=== PATIENT | female | born 1935 | race Hispanic/Latino ===

== ENCOUNTER 2019-04-26 18:53 | Observation (INO) | payer MEDICARE ==
[~2019-04-26] VITALS: Ht 152.4 cm; Wt 65.4 kg
--- OUTSIDE RECORDS SUMMARY | 2019-04-26 18:56 | XMS REPORT ---
Author Author Clarisse Kong Organization eClinicalWorks Address Unknown Phone Unavailable Care Team Providers Care Oven Equipment Repairer Name Role Phone Clarisse Kong CP Unavailable Encounters Encounter Location Date DM Consult ((former pt of Dr. Kong)) Cecilio Bernal MD Aug 29, 2016 [facility] Cecilio Bernal MD Sep 20, 2016 Problems Problem Type Condition ICD-9 Code Onset Dates Condition Status Problem Diabetes mellitus type 2, uncontrolled, without complications E11.65 Active Problem Hyperlipidemia E78.5 Active Problem DM (diabetes mellitus), type 2, uncontrolled w/neurologic complication E11.41 Active Problem CKD (chronic kidney disease) stage 4, GFR 15-29 ml/min N18.4 Active Assessment Diabetes mellitus type 2, uncontrolled, without complications E11.65 Active Problem Essential (primary) hypertension I10 Active Problem Osteoporosis M81.0 Active Social History Social History Element Qualifiers Date Reported Language: . Irish, Czech Aug 29, 2016 Marital Status: single. Aug 29, 2016 Caffeine: yes. OCC Aug 29, 2016 Exercise: no. Aug 29, 2016 Smoking/Tobacco Use: no. Patient is a: Never Smoker Aug 29, 2016 Alcohol: no. Aug 29, 2016 Travel outside [place]: no. Aug 29, 2016 Occupation: unemployed. Aug 29, 2016 Summary Purpose eClinicalWorks Submission
--- OUTSIDE RECORDS SUMMARY | 2019-04-26 18:56 | XMS REPORT ---
Author Clarisse Partida [facility] [place] eClinicalWorks Address Unknown Phone Unavailable Care Team Providers Care Rubber Moulding Machine Operator Name Role Phone Clarisse Kong Unavailable Allergies, Adverse Reactions, Alerts Substance Reaction Event Type Iodine swelling Drug Allergy Encounters Encounter Location Date DM Consult ((former pt of Dr. Kong)) Cecilio Bernal MD Aug 29, 2016 Problems Problem Type Condition ICD-9 Code Onset Dates Condition Status Assessment Essential (primary) hypertension I10 Active Assessment DM (diabetes mellitus), type 2, uncontrolled w/neurologic complication E11.41 Active Assessment Hyperlipidemia E78.5 Active Problem Diabetes mellitus type 2, uncontrolled, without complications E11.65 Active Problem Hyperlipidemia E78.5 Active Problem DM (diabetes mellitus), type 2, uncontrolled w/neurologic complication E11.41 Active Problem CKD (chronic kidney disease) stage 4, GFR 15-29 ml/min N18.4 Active Assessment Diabetes mellitus type 2, uncontrolled, without complications E11.65 Active Problem Essential (primary) hypertension I10 Active Problem Osteoporosis M81.0 Active Assessment CKD (chronic kidney disease) stage 4, GFR 15-29 ml/min N18.4 Active Assessment Onychomycosis B35.1 Active Assessment Osteoporosis M81.0 Active Medications Medication Code System Code Instructions Start Date End Date Status Dosage Prolia MULTUM 461704 60 mg/mL subcutaneously every 6 months Aug 29, 2016 Active 60 mg gabapentin MULTUM 27007 300 mg orally 3 times a day Aug 29, 2016 Active 1 cap(s) lisinopril MULTUM 28115 20 mg orally once a day Active 1 tab(s) atorvastatin MULTUM 40469 40 mg orally once a day (at bedtime) Active 1 tab(s) Humalog Mix 75/25 MULTUM 09255 25 units-75 units/mL subcutaneously daily Inactive 25U AM, 20U PM Ciclopirox Olamine MULTUM 09505 8% applied topically apply daily to affected toenails Aug 29, 2016 Active 1 billy Humalog Mix 75/25 Pen MULTUM 29342 25 units-75 units/mL subcutaneously daily Sep 06, 2016 Active 25 units AM , 20units PM BD Ultra-Fine Pen Needle Zo [id number] MULTUM 5517267 - subcutaneously daily Sep 06, 2016 Active - amlodipine MULTUM 20954 5 mg orally once a day Active 1 tab(s) calcium and vitamin D combination MULTUM 29028 Active Unknown Social History Social History Element Qualifiers Date Reported Language: . [place] Islander, Central African Aug 29, 2016 Marital Status: single. Aug 29, 2016 Caffeine: yes. OCC Aug 29, 2016 Exercise: no. Aug 29, 2016 Smoking/Tobacco Use: no. Patient is a: Never Smoker Aug 29, 2016 Alcohol: no. Aug 29, 2016 Travel outside [place]: no. Aug 29, 2016 Occupation: unemployed. Aug 29, 2016 Vital Signs Date/Time: Aug 29, 2016 Weight 140 lbs Height 58 in Blood Pressure Diastolic 70 mm Hg Blood Pressure Systolic 116 mm Hg Results TSH, 3RD GENERATION TSH(-0.40-4.50 mIU/L) 2.76 T4, FREE T4, FREE(-0.8-1.8 ng/dL) 0.9 Finger stick glucose VITAMIN D, 25-HYDROXY, LC/MS/MS VITAMIN D, 25-OH, TOTAL(-30-100 ng/mL) 21 Summary Purpose eClinicalWorks Submission
--- OUTSIDE RECORDS SUMMARY | 2019-04-26 18:56 | XMS REPORT | Continuity of Care Document ---
Author Author [facility] Interface Address Unknown Phone Unavailable Problems Problem Status Onset Date Classification Date Reported Comments Source Hyperlipidemia Active Diagnosis 06/14/2017 Cecilio Bernal Diabetes mellitus type 2, uncontrolled, without complications Active Diagnosis 06/14/2017 Cecilio Bernal DM , type 2, uncontrolled w/neurologic complication Active Diagnosis 06/14/2017 Cecilio Bernal Vitamin D deficiency Active Problem 06/14/2017 Cecilio Bernal Osteoporosis Active Problem 06/14/2017 Cecilio Bernal CKD stage 4, GFR 15-29 ml/min Active Problem 06/14/2017 Cecilio Bernal Essential hypertension Active Problem 06/14/2017 Cecilio Bernal Onychomycosis Active Diagnosis 11/02/2016 Cecilio Bernal Medications Medication Details Route Status Patient Instructions Ordering Provider Order Date Source ergocalciferol 1 cap(s) orally Active 50,000 intl units orally once a week Luann 10/17/2016 Cecilio Bernal Humalog Mix 75/25 Pen 25 units AM , 20units PM subcutaneously Active 25 units-75 units/mL subcutaneously daily Luann 09/06/2016 Cecilio Bernal BD Ultra-Fine Pen Needle Zo [id number] - subcutaneously Active - subcutaneously daily Luann 09/06/2016 Cecilio Bernal Prolia 60 mg subcutaneously Active 60 mg/mL subcutaneously every 6 months Luann 08/29/2016 Cecilio Bernal gabapentin 1 cap(s) orally Active 300 mg orally 3 times a day Luann 08/29/2016 Cecilio Bernal Ciclopirox Olamine 1 billy applied topically Active 8% applied topically apply daily to affected toenails Luann 08/29/2016 Cecilio Bernal atorvastatin 1 tab(s) orally Active 40 mg orally once a day (at bedtime) Luann Bernal amlodipine 1 tab(s) orally Active 5 mg orally once a day Luann Bernal ergocalciferol 1 cap(s) orally Active 50,000 intl units orally once a week Luann Cecilio Bernal calcium and vitamin D combination not defined NA Active Luann Cecilio Bernal lisinopril 1 tab(s) orally Active 20 mg orally once a day Luann Galvezvaleta gabapentin 1 cap(s) orally Active 300 mg orally 2 times a day Luann Cecilio GalvezDolores Prolia 60 mg subcutaneously Active 60 mg/mL subcutaneously every 6 months Luann Bernal Humalog Mix 75/25 Pen 30 units with breakfast and 25 units with dinner subcutaneously Active 25 units-75 units/mL subcutaneously BID Luann Cecilio Bernal BD Ultra-Fine Pen Needle Zo [id number] - subcutaneously Active - subcutaneously daily Luann Cecilio GalvezDolores chlorthalidone not defined NA Active Luann Cecilio Bernal Humalog Mix 75/25 Pen 28 units AM , 20units PM subcutaneously Active 25 units-75 units/mL subcutaneously daily Luann Cecilio GalvezDolores lisinopril 1 tab(s) orally Active 20 mg orally once a day Luann Hernandes Dolores ergocalciferol 1 cap(s) orally Active 50,000 intl units orally once a week Luann Cecilio GalvezDolores gabapentin 1 cap(s) orally Active 300 mg orally 3 times a day Luann Hernandes Dolores BD Ultra-Fine Pen Needle Zo [id number] - subcutaneously Active - subcutaneously daily Luann Galvezvaleta Prolia 60 mg subcutaneously Active 60 mg/mL subcutaneously every 6 months Luann Cecilio Dolores atorvastatin 1 tab(s) orally Active 40 mg orally once a day (at bedtime) Luann Bernal calcium and vitamin D combination not defined NA Active Luann Cecilio Bernal Ciclopirox Olamine 1 billy applied topically Active 8% applied topically apply daily to affected toenails Luann Cecilio GalvezDolores amlodipine 1 tab(s) orally Active 5 mg orally once a day Luann Cecilio GalvezDolores Humalog Mix 75/25 25U AM, 20U PM subcutaneously No Longer Active 25 units-75 units/mL subcutaneously daily Luann Bernal Allergies, Adverse Reactions, Alerts Substance Category Reaction Severity Reaction type Status Date Reported Comments Source Iodine Adverse Reaction swelling Adverse Reaction Active 04/17/2017 Cecilio Bernal Immunizations Immunization Date Given Site Status Last Updated Comments Source Results Order Name Results Value Reference Range Date Interpretation Comments Source Vital Signs Vital Sign Value Date Comments Source Weight 143 04/17/2017 Cecilio Bernal Height 58 04/17/2017 Cecilio Bernal Diastolic (mm Hg) 70 04/17/2017 Cecilio Bernal Systolic (mm Hg) 125 04/17/2017 Cecilio Bernal Weight 145 01/14/2017 Cecilio Bernal Height 58 01/14/2017 Cecilio Bernal Diastolic (mm Hg) 80 01/14/2017 Cecilio Bernal Systolic (mm Hg) 122 01/14/2017 Cecilio Bernal Weight 139 10/17/2016 Cecilio Bernal Height 58 10/17/2016 Cecilio Bernal Diastolic (mm Hg) 70 10/17/2016 Cecilio Bernal Systolic (mm Hg) 110 10/17/2016 Cecilio Bernal Weight 140 08/29/2016 Cecilio Bernal Height 58 08/29/2016 Cecilio Bernal Diastolic (mm Hg) 70 08/29/2016 Cecilio Bernal Systolic (mm Hg) 116 08/29/2016 Cecilio GalvezDolores Encounters Location Location Details Encounter Type Encounter Number Reason For Visit Attending Provider ADM Date DC Date Status Source Cecilio Bernal MD DM Consult ((former pt of Dr. Kong)) [id number] 08/29/2016 08/29/2016 Cecilio Gonzalez MD DM Consult ((former pt of Dr. Kong)) [id number] 08/29/2016 08/29/2016 Cecilio Gonzalez MD DM Consult ((former pt of Dr. Kong)) [id number] 08/29/2016 08/29/2016 Cecilio Gonzalez MD DM Consult ((former pt of Dr. Kong)) [id number] 08/29/2016 08/29/2016 Cecilio Gonzalez MD [facility] [id number] 09/20/2016 09/20/2016 Cecilio Gonzalez MD [facility] [id number] 09/20/2016 09/20/2016 Cecilio Gonzalez MD [facility] [id number] 09/20/2016 09/20/2016 Cecilio Gonzalez MD 6 Weeks (Reason: CGM/DM ) [id number] 10/17/2016 10/17/2016 Cecilio Gonzalez MD 6 Weeks (Reason: CGM/DM ) [id number] 10/17/2016 10/17/2016 Cecilio Gonzalez MD lab order [id number] 01/07/2017 01/07/2017 Cecilio Bernal Procedures Procedure Code Date Perfomer Comments Source
--- OUTSIDE RECORDS SUMMARY | 2019-04-26 18:56 | XMS REPORT ---
Author Clarisse Partida [facility] eClinicalWorks Address Unknown Phone Unavailable Care Team Providers Care Power Shovel Operator Name Role Phone Clarisse Kong Unavailable Encounters Encounter Location Date lab order Cecilio Bernal MD January 07, 2017 DM Consult ((former pt of Dr. Kong)) Cecilio Bernal MD Aug 29, 2016 [facility] Cecilio Bernal MD Sep 20, 2016 6 Weeks (Reason: CGM/DM ) Cecilio Bernal MD Oct 17, 2016 Problems Problem Type Condition ICD-9 Code Onset Dates Condition Status Assessment CKD (chronic kidney disease) stage 4, GFR 15-29 ml/min N18.4 Active Assessment Diabetes mellitus type 2, uncontrolled, without complications E11.65 Active Assessment Essential (primary) hypertension I10 Active Problem DM (diabetes mellitus), type 2, uncontrolled w/neurologic complication E11.41 Active Problem Diabetes mellitus type 2, uncontrolled, without complications E11.65 Active Problem Vitamin D deficiency E55.9 Active Problem Osteoporosis M81.0 Active Problem CKD (chronic kidney disease) stage 4, GFR 15-29 ml/min N18.4 Active Problem Hyperlipidemia E78.5 Active Problem Essential (primary) hypertension I10 Active Assessment Vitamin D deficiency E55.9 Active Assessment Osteoporosis M81.0 Active Assessment Hyperlipidemia E78.5 Active Social History Social History Element Qualifiers Date Reported Language: . Panamanian, Azeri Oct 17, 2016 Marital Status: single. Oct 17, 2016 Caffeine: yes. OCC Oct 17, 2016 Exercise: no. Oct 17, 2016 Smoking/Tobacco Use: no. Patient is a: Never Smoker Oct 17, 2016 Alcohol: no. Oct 17, 2016 Travel outside [place]: no. Oct 17, 2016 Occupation: unemployed. Oct 17, 2016 Summary Purpose eClinicalWorks Submission
--- OUTSIDE RECORDS SUMMARY | 2019-04-26 18:56 | XMS REPORT ---
Author Clarisse Partida [facility] eClinicalWorks Address Unknown Phone Unavailable Care Team Providers Care Airflight Attendants Supervisor Name Role Phone Clarisse Kong CP Unavailable Allergies, Adverse Reactions, Alerts Substance Reaction Event Type Iodine swelling Drug Allergy Problems Problem Type Condition Code Onset Dates Condition Status Assessment Hyperlipidemia E78.5 Active Assessment Diabetes mellitus type 2, uncontrolled, without complications E11.65 Active Assessment DM (diabetes mellitus), type 2, uncontrolled w/neurologic complication E11.41 Active Problem DM (diabetes mellitus), type 2, uncontrolled w/neurologic complication E11.41 Active Problem Diabetes mellitus type 2, uncontrolled, without complications E11.65 Active Problem Vitamin D deficiency E55.9 Active Problem Osteoporosis M81.0 Active Problem CKD (chronic kidney disease) stage 4, GFR 15-29 ml/min N18.4 Active Problem Hyperlipidemia E78.5 Active Problem Essential (primary) hypertension I10 Active Assessment Vitamin D deficiency E55.9 Active Assessment CKD (chronic kidney disease) stage 4, GFR 15-29 ml/min N18.4 Active Assessment Osteoporosis M81.0 Active Assessment Essential (primary) hypertension I10 Active Medications Medication Code System Code Instructions Start Date End Date Status Dosage atorvastatin [facility] 30398686965 40 mg orally once a day (at bedtime) Active 1 tab(s) amlodipine [facility] 08334543694 5 mg orally once a day Active 1 tab(s) ergocalciferol [facility] 89317342249 50,000 intl units orally once a week Active 1 cap(s) calcium and vitamin D combination ND 0 Active not defined lisinopril [facility] 34432343608 20 mg orally once a day Active 1 tab(s) gabapentin ND 80895119681 300 mg orally 2 times a day Active 1 cap(s) Prolia [facility] 83469941737 60 mg/mL subcutaneously every 6 months Active 60 mg Humalog Mix 75/25 Pen [facility] 64689206038 25 units-75 units/mL subcutaneously BID Active 30 units with breakfast and 25 units with dinner BD Ultra-Fine Pen Needle Zo [id number] NDC 0 - subcutaneously daily Active - chlorthalidone NDC 0 Active not defined Vital Signs Date/Time: April 17, 2017 BMI 29.88 Index Weight 143 lbs Height 58 in Blood Pressure Diastolic 70 mm Hg Blood Pressure Systolic 125 mm Hg Results No Known Results Summary Purpose eClinicalWorks Submission
--- OUTSIDE RECORDS SUMMARY | 2019-04-26 18:56 | XMS REPORT ---
Author Clarisse Partida [facility] eClinicalWorks Address Unknown Phone Unavailable Care Team Providers Care Over Hauler Helper Name Role Phone Clarisse Kong Unavailable Allergies, [...] ICD-9 Code Onset Dates Condition Status Assessment Hyperlipidemia [...] Problem Essential (primary) hypertension I10 Active Assessment CKD (chronic kidney disease) stage 4, GFR 15-29 ml/min N18.4 Active Assessment Onychomycosis B35.1 Active Assessment Osteoporosis M81.0 Active Assessment Vitamin D deficiency E55.9 Active Assessment Essential (primary) hypertension I10 Active Medications Medication Code System Code Instructions Start Date End Date Status Dosage atorvastatin MULTUM 37291 40 mg orally once a day (at bedtime) Active 1 tab(s) Prolia MULTUM 892923 60 mg/mL subcutaneously every 6 months Active 60 mg gabapentin MULTUM 11378 300 mg orally 3 times a day Active 1 cap(s) lisinopril MULTUM 15722 20 mg orally once a day Active 1 tab(s) Ciclopirox Olamine MULTUM 63795 8% applied topically apply daily to affected toenails Active 1 billy ergocalciferol MULTUM 26205 50,000 intl units orally once a week Oct 17, 2016 Active 1 cap(s) BD Ultra-Fine Pen Needle Zo [id number] MULTUM 3744975 - subcutaneously daily Active - Humalog Mix 75/25 Pen MULTUM 56366 25 units-75 units/mL subcutaneously daily Active 28 units AM , 20units PM amlodipine MULTUM 30784 5 mg orally once a day Active 1 tab(s) calcium and vitamin D combination MULTUM 87076 Active Unknown Social History Social History Element Qualifiers Date Reported Language: . Azeri, Cuban Oct 17, 2016 Marital Status: single. Oct 17, 2016 Caffeine: yes. OCC Oct 17, 2016 Exercise: no. Oct 17, 2016 Smoking/Tobacco Use: no. Patient is a: Never Smoker Oct 17, 2016 Alcohol: no. Oct 17, 2016 Travel outside [place]: no. Oct 17, 2016 Occupation: unemployed. Oct 17, 2016 Vital Signs Date/Time: Oct 17, 2016 Weight 139 lbs Height 58 in Blood Pressure Diastolic 70 mm Hg Blood Pressure Systolic 110 mm Hg Results Finger stick glucose Summary Purpose eClinicalWorks Submission
--- OUTSIDE RECORDS SUMMARY | 2019-04-26 18:56 | XMS REPORT ---
Author Clarisse Partida [facility] eClinicalWorks Address Unknown Phone Unavailable Care Team Providers Care Nuclear Reactor Operator Name Role Phone Clarisse Kong CP Unavailable Allergies No Known Allergies Problems Problem Type Condition Code Onset Dates Condition Status Assessment Diabetes mellitus type 2, uncontrolled, without complications E11.65 Active Problem DM (diabetes mellitus), type 2, uncontrolled w/neurologic complication E11.41 Active Problem Diabetes mellitus type 2, uncontrolled, without complications E11.65 Active Problem Vitamin D deficiency E55.9 Active Problem Osteoporosis M81.0 Active Problem CKD (chronic kidney disease) stage 4, GFR 15-29 ml/min N18.4 Active Problem Hyperlipidemia E78.5 Active Problem Essential (primary) hypertension I10 Active Medications Medication Code System Code Instructions Start Date End Date Status Dosage Humalog Mix 75/25 Pen [facility] [address]62 25 units-75 units/mL subcutaneously daily Active 28 units AM , 20units PM Results No Known Results Summary Purpose eClinicalWorks Submission
--- OUTSIDE RECORDS SUMMARY | 2019-04-26 18:56 | XMS REPORT ---
Author Clarisse Partida [facility] eClinicalWorks Address Unknown Phone Unavailable Care Team Providers Care Bobbin Painter Name Role Phone Clarisse Kong Unavailable Allergies, [...] Instructions Start Date End [place] [address] 20 mg orally once a day Active 1 tab([place] [address] 50,000 intl units orally once a week Active 1 cap(s) gabapentin NDC 75753 300 mg orally 3 times a day Active 1 cap(s) BD Ultra-Fine Pen Needle Zo [id number] ND 0127236 - subcutaneously daily Active - Prolia NDC 941623 60 mg/mL subcutaneously every 6 months Active 60 [place] [address] 40 mg orally once a day (at bedtime) Active 1 tab([place]) [place] [address] Active not [place] [address] 8% applied topically apply daily to affected toenails Active 1 billy Humalog Mix 75/[place] [address] 25 units-75 units/mL subcutaneously daily Active 28 units AM , 20units PM amlodipine [facility] 48143 5 mg orally once a day Active 1 tab(s) Vital Signs Date/Time: January 14, 2017 BMI 30.30 Index Weight 145 lbs Height 58 in Blood Pressure Diastolic 80 mm Hg Blood Pressure Systolic 122 mm Hg Results No Known Results Summary Purpose eClinicalWorks Submission
[2019-04-26] MEDS ORDERED: SODIUM CHLORIDE 0.9% 500ML 500 ML IV STA (19:09)
[2019-04-26] MEDS ORDERED: ONDANSETRON HCL INJ 2MG/ML 2ML 2 MG/ML VIAL IV ONE (19:15)
[2019-04-26] MEDS ORDERED: FAMOTIDINE 20 MG/2 ML VIAL IV ONE ×2 (19:15→19:35)
[2019-04-26] MEDS ORDERED: SODIUM CHLORIDE 0.9% 500ML 500 ML ONE (19:35)
[2019-04-26] MEDS ORDERED: ONDANSETRON HCL INJ 2MG/ML 2ML 2 MG/ML VIAL ONE (19:35)
[2019-04-26] MEDS ORDERED: DIPHENHYDRAMINE HCL INJ 50 MG/ML VIAL IV PRN ×2 (19:45→20:45)
[2019-04-26] MEDS ORDERED: PROMETHAZINE 12.5MG/ NACL 0.9% 12.5 MG/50 ML BAG IV PRN (19:45)
[2019-04-26] MEDS ORDERED: ENALAPRILAT IV INJ 1.25 MG/ML VIAL IV PRN ×2 (19:45→20:45)
[2019-04-26] MEDS ORDERED: ONDANSETRON HCL INJ 2MG/ML 2ML 2 MG/ML VIAL IV PRN ×2 (19:45→20:45)
[2019-04-26] MEDS ORDERED: HYDRALAZINE HCL 20 MG/ML VIAL IV PRN (19:45)
[2019-04-26] MEDS ORDERED: MORPHINE SULFATE INJ 4 MG/ML INJ 1ML IV PRN ×2 (19:45→20:45)
[2019-04-26] MEDS ORDERED: MORPHINE SULFATE INJ 4 MG/ML INJ 1ML ONE (19:51)
[2019-04-26] MEDS ORDERED: LACTATED RINGER'S 1,000 ML IV SCH (20:35)
--- NOTE | 2019-04-26 20:35 | Diagnostic Imaging Report ---
EXAMINATION: CT of the abdomen and pelvis without contrast. TECHNIQUE: Spiral CT images of the abdomen and pelvis were performed from the lung bases to the lesser trochanters. No intravenous contrast was given per physician's request. Coronal and sagittal reformatted images were obtained. COMPARISON: None. CLINICAL HISTORY:Constipation, lower abdominal pain for 3 days DISCUSSION: ABSENCE OF INTRAVENOUS CONTRAST DECREASES SENSITIVITY FOR DETECTION OF FOCAL LESIONS AND VASCULAR PATHOLOGY. ABDOMEN/PELVIS: LOWER THORAX: Atherosclerotic calcification of the coronary arteries and thoracic aorta. Calcified bilateral hilar nodes. Linear subsegmental atelectasis versus scarring in the lateral right lower lobe. 3 mm pulmonary nodule in the lateral right lower lobe (series 2, image 11). HEPATOBILIARY: No focal hepatic lesions. No intrahepatic biliary ductal dilation. Common bile duct is mildly dilated, measuring 8.5 mm at the antonio hepatis. GALLBLADDER: There are cholecystectomy clips. SPLEEN: No splenomegaly. PANCREAS: No focal masses or ductal dilatation. Fatty replacement of the pancreas. ADRENALS: No adrenal nodules. KIDNEYS/URETERS: Punctate nonobstructing calculus in the left superior to mid aspect (series 2, image 30 and coronal image 67). No other renal or ureteral calculi, hydronephrosis or obstruction. Mild nonspecific bilateral perinephric stranding. Mild bilateral renal cortical scarring. PELVIC ORGANS/BLADDER: Bladder is moderately distended but grossly unremarkable. Uterus is absent. Multiple pelvic phleboliths. PERITONEUM/RETROPERITONEUM: No free air or fluid. LYMPH NODES: No intra-abdominal,retroperitoneal, pelvic or inguinal lymphadenopathy. VESSELS: Atherosclerotic calcification of the abdominal aorta and iliac vessels. GI TRACT: Mild dilation of the rectum which measures 6.7 cm in transverse diameter, and is filled with hardened stool (series 2, images 79 and sagittal image 61). No surrounding inflammatory changes. No bowel dilation or evidence of obstruction. Mild retained stool in the distal descending colon and sigmoid. BONES AND SOFT TISSUES: No aggressive lytic lesions. Generalized osteopenia. Age indeterminate compression fractures of the L3 and T12 vertebral bodies. Focal subcutaneous soft tissue stranding in the right anterior abdominal pelvic wall (series 2, image 68), which may represent subcutaneous injection site IMPRESSION: 1. Mild dilation of the rectum, which is filled with hardened stool. This may reflect impaction. Rest of the bowel shows no dilation or obstruction. 2. Punctate nonobstructing calculus in the left kidney. No ureteral calculi, hydronephrosis or obstruction. 3. Mild dilation of the common bile duct, likely reflecting post cholecystectomy status. 4. Age-indeterminate compression fractures of the L3 and T12 vertebral bodies Signed by: Dr. Kaiden Beltran M.D. on 04/26/2019 8:32 PM
[2019-04-26] MEDS ORDERED: SOD PHOSPHATE/SOD BIPHOSPHATE ENEMA 132 ML BTL PR ONE (20:45)
[2019-04-26] MEDS ORDERED: PEG (High)/E-LYTE SOLN 4,000 ML BTL PO ONE (20:45)
[2019-04-26] MEDS ORDERED: DEXTROSE 50% SYRINGE 50 ML IV PRN (20:45)
[2019-04-26] MEDS ORDERED: INSULIN REGULAR, HUMAN 100 UNIT/1 ML 3ML VIAL SQ SCH (21:00)
--- NOTE | 2019-04-26 21:00 | NUR ---
REPORT CALLED TO [facility] SNYDER, NOTIFIED THAT WE ARE UNABLE TO GIVE FLEETS ENEMA AND OTHER MEDICATION FOR HELP WITH EVACUATION OF FECAL IMPACTATION WE DO NOT HAVE MEDS AVAILABLE HERE AT [facility]. NOTIFIED DR. ARAUZ WELL OF MEDS NOT BEING GIVEN.
--- NOTE | 2019-04-26 22:22 | NUR ---
AWAITING AMBULANCE TRANSPORT FROM [facility], [facility] CALLED 2106 FOR TANSPORT AND TOLD LESS THAN 45 MINUTES, CALLED BACK AT 2153 AND TOLD POSSIBLY ADDITIONAL 30-45 MINUTES NEEDED [facility] DISPATCH WAS EMERGENTLY SENT ELSE WHERE, TIME CURRENTLY 2222 AND NOW AWAITING A SECOND UNIT THAT WAS DISPATCHED? WAS TOLD AT 2215 THAT THERE WAS A UNIT LESS THAN 10 MINUTES AWAY BUT STILL AWAITING ARRIVAL OF EMS AT 2225??!!!
[2019-04-26] MEDS ORDERED: ATORVASTATIN CA20 MG PO (22:35)
[2019-04-26] MEDS ORDERED: AMLODIPINE BESYL5 MG PO (22:35)
[2019-04-26] MEDS ORDERED: FUROSEMIDE40 MG PO (22:35)
--- NOTE | 2019-04-26 22:55 | NUR ---
received pt from [facility] to room 179, AAOx4, legally blind and hard of hearing, c/o abdominal pain 04/12, pain meds on board, skin intact, able to verbalize needs, resp even and unlabored, daughter at bedside, bed in lowest and locked position, call light in reach
[2019-04-26 23:10] VITALS: BP 151/67
[2019-04-27 00:10] VITALS: BP 151/67
--- NOTE | 2019-04-27 01:30 | NUR ---
administered fleets enema, pt tolerated
--- NOTE | 2019-04-27 01:49 | NUR ---
pt had large bowel movement of hard stool then liquid, stated " i feel better already"
[2019-04-27 05:01] LABS: BASOPHILS % 0.3 % (0.0-1.0); EOSINOPHILS # (AUTO) 0.2 (0.0-0.4); EOSINOPHILS % 1.8 % (0.0-6.0); HEMATOCRIT 28.4 % (34.2-44.1); HEMOGLOBIN 8.7 g/dL (12.0-16.0); LYMPHOCYTES # (AUTO) 2.9 (1.0-3.2); LYMPHOCYTES % 26.9 % (18.0-39.1); MEAN CORPUSCULAR HEMOGLOBIN 27.4 pg (28-32); MEAN CORPUSCULAR HGB CONC 30.6 g/dL (31-35); MEAN CORPUSCULAR VOLUME 89.6 fL (81-99); MONOCYTES # (AUTO) 0.8 (0.2-0.8); MONOCYTES % 7.7 % (4.4-11.3); NEUTROPHILS # (AUTO) 6.8 (2.1-6.9); PLATELET COUNT 153 x10e3/uL (140-360); RED BLOOD COUNT 3.17 x10e6/uL (3.6-5.1)
[2019-04-27 05:03] VITALS: BP 124/57
[2019-04-27 05:21] LABS: ANION GAP 13.9 mmol/L (8-16); CALCIUM 8.3 mg/dL (8.4-10.2); CREATININE, SERUM 2.54 mg/dL (0.57-1.11); POTASSIUM 3.9 mmol/L (3.5-5.1)
--- NOTE | 2019-04-27 06:42 | NUR ---
H&P cc: abdominal pain- severe HPI: 83yoF, PCP , developed severe abdominal pain, found to have fecal impaction. PMH: HTN, DM2, HLD< osteoporosis, CKD due to DM2, anemia, lumbar compression fx PSHx: cholecystectomy, partial hysterectomy Allergies; see emr fh/SH; ; no cigs/etoh Meds; see MAR ROS: no f/c/s/N/V/D/AREVALO/cp/dizziness/back pain/skin rash v's revd PE tired appering anicteric ns1s2 mod bs soft ND; minimally tender no e/t skin dry a&ox3 labs/mes revd A/P: CKD4 due to DM2 Fecal impaction Lumbar compression fx Moderate anemia HTN HLD PLAN; bowel reg PT consult fx chronic? SCD
[2019-04-27] MEDS ORDERED: SODIUM CHLORIDE 0.9% 1000ML 1,000 ML IV SCH (07:00)
[2019-04-27] MEDS ORDERED: COLACE100 MG PO (07:34)
[2019-04-27] MEDS ORDERED: SENNA LAX8.6 MG PO (07:34)
[2019-04-27] MEDS ORDERED: LACTULOSE20 GM/30 M PO (07:34)
[2019-04-27 07:51] VITALS: BP 111/54
[2019-04-27] MEDS ORDERED: FUROSEMIDE 40 MG TAB PO SCH (09:00)
[2019-04-27] MEDS ORDERED: AMLODIPINE BESYLATE 5 MG TAB PO SCH (09:00)
[2019-04-27] MEDS ORDERED: DOCUSATE SODIUM 100 MG CAP PO SCH (09:00)
[2019-04-27] MEDS ORDERED: ATORVASTATIN 20 MG TAB PO SCH (21:00)
--- NOTE | 2019-04-29 06:02 | NUR ---
D/C summary: Principal dx; Fecal impaction Secondary Dx: CKD4 due to DM2 Lumbar compression fx Moderate anemia HTN HLD PLAN; bowel reg PT consult fx chronic? SCD had multiple BMs; d/c home f/u pcp 1 week stable d/c>35mins Onel Sterling MD, PhD.
== END 2019-04-27 08:05 | disposition home or self-care (01) ==
LOC: FSED 18:53 → ERHOLD 20:35 → IMCU 22:55
PROVIDERS: ADMIT Internal Medicine; ATTEND Internal Medicine
DX: K56.41 Fecal impaction (principal); E11.22 Type 2 diabetes mellitus with diabetic chronic kidney disease; I12.9 Hypertensive chronic kidney disease with stage 1 through stage 4 chronic kidney disease, or unspecified chronic kidney disease; N18.4 Chronic kidney disease, stage 4 (severe); Z79.4 Long term (current) use of insulin; M48.56XD Collapsed vertebra, not elsewhere classified, lumbar region, subsequent encounter for fracture with routine healing; M81.0 Age-related osteoporosis without current pathological fracture; Z90.710 Acquired absence of both cervix and uterus
CPT/HCPCS: 36415; 74176; 80048; 80053; 81003; 82948; 85025 ×2; 99284; G0378 ×2; J0360; J1200; J1817; J2270; J2405 ×2; J2550; J7030; J7040; J7121

== ENCOUNTER 2020-01-31 14:27 | Emergency (ER) | payer MEDICARE ==
[~2020-01-31] VITALS: Ht 152.4 cm; Wt 65.3 kg
[~2020-01-31 14:27] MED LIST: AMLODIPINE BESYL5 MG PO; ATORVASTATIN CA20 MG PO; COLACE100 MG PO; FUROSEMIDE40 MG PO; LACTULOSE20 GM/30 M PO; SENNA LAX8.6 MG PO
--- OUTSIDE RECORDS SUMMARY | 2020-01-31 14:30 | XMS REPORT ---
Author Author [facility] Address Unknown Phone Unavailable Care Team Providers Care Technical Sales Support Specialist Name Role Phone MORRIS MINE, Jud ESTEBAN PP Unavailable Pardeep ARAUZ Unavailable Unavailable EMCINDY Unavailable Unavailable Payers Payer Name Policy Type Policy Number Effective Date Expiration Date Problems This patient has no known problems. Allergies, Adverse Reactions, Alerts Allergy Name Allergy Type Status Severity Reaction(s) Onset Date Inactive Date Treating Clinician Comments iodine DA Active SV 2019-07-29 00:00:00 Medications This patient has no known medications. Encounters Start Date/Time End Date/Time Encounter Type Admission Type Attending Clinicians Care Facility Care Department Encounter ID 2019-07-28 18:21:00 2019-07-28 18:21:00 Emergency E [id number] 2017-09-29 21:35:00 2017-09-29 21:35:00 Emergency E [facility] [id number] 2017-09-24 10:35:00 2017-09-24 10:35:00 Outpatient C [facility] [id number] 2013-12-15 12:57:00 2013-12-15 12:57:00 Emergency E [facility] [id number] 2012-03-11 01:26:00 2012-03-11 01:26:00 Outpatient E [facility] [id number] Results Test Description Test Time Test Comments Text Results Atomic Results Result Comments US Breast Complete Left 2019-10-15 09:54:48 Patient: LALA MURRIETA Date/Time10/15/2019 09:32 CSTReason for ExamR92.8ReportDictation location C24Nmat breast ultrasound.HISTORY: 6 month follow-up of complicated left breast cystCOMMENT: Real-time sonographic images of the left breast were performed. Heterogeneous fibroglandular tissue is present. There are stable cysts at the 4:00 position 2 cm from the nipple measuring 9 mm and a smaller complicated cyst at the 9:00 retroareolar region measuring 4 mm. No new lesions or enlarged lymph nodes noted.IMPRESSION:1. Benign cysts in the left breast.2. BI-RADS CATEGORY: 2- BENIGN FINDINGSRECOMMENDATION: Resume yearly screening mammogram Final Dictated by: MD Ford Phebe CDictated DT/TM: 10/15/2019 9:38 amSigned by: MD Ford Phebe CSigned (Electronic Signature): 10/15/2019 9:54 am GLUBED 2019-08-04 17:18:00 GLUBED (test code=GLUBED) 198 MG/DL 70-110 Performed by certified contact acid plant operator helper at [facility] [id number] 12:53:00* Test Item Value Reference Range Comments GLUBED (test code=GLUBED) 230 MG/DL 70-110 Performed by certified contact acid plant operator helper at [facility] [id number] 08:40:00* Test Item Value Reference Range Comments GLUBED (test code=GLUBED) 230 MG/DL 70-110 Performed by certified contact acid plant operator helper at [facility] BASIC METABOLIC [id number] 08:08:00* Test Item Value Reference Range Comments SODIUM (test code=NA) 143 mEq/L 134-147 POTASSIUM (test code=K) 4.7 mEq/L 3.4-5.0 CHLORIDE (test code=CL) 111 mEq/L 100-108 CARBON DIOXIDE (test code=CO2) 28 mEq/L 21-33 ANION GAP (test code=GAP) 9 0-20 GLUCOSE (test code=GLU) 256 mg/dL 70-110 BLOOD UREA NITROGEN (test code=BUN) 41 mg/dL 7-18 GLOMERULAR FILTRATION RATE (test code=GFR) 23.7 70-80 Units of measure=ml/min/1.73 m2 CREATININE (test code=CREAT) 2.0 mg/dL 0.6-1.3 CALCIUM (test code=CA) 8.2 mg/dL 8.0-10.5 [id number] 08:08:00* Test Item Value Reference Range Comments PHOSPHOROUS (test code=PHOS) 2.5 MG/DL 2.5-4.9 [id number] 08:08:00* Test Item Value Reference Range Comments MAGNESIUM (test code=MAG) 2.30 mg/dL 1.8-2.4 CBC W/AUTO [id number] 07:17:00* Test Item Value Reference Range Comments WHITE BLOOD CELL (test code=WBC) 9.76 x10 3/uL 4.5-11.0 RED BLOOD CELL (test code=RBC) 2.89 x10 6/uL 3.54-5.02 HEMOGLOBIN (test code=HGB) 8.0 g/dL 11.0-15.0 HEMATOCRIT (test code=HCT) 26.2 % 33.0-45.0 MEAN CELL VOLUME (test code=MCV) 90.7 fL 81.0-99.0 MEAN CELL HGB (test code=MCH) 27.7 pg 27.0-33.0 MEAN CELL HGB CONCETRATION (test code=MCHC) 30.5 g/dL 33.0-37.0 RED CELL DISTRIBUTION WIDTH CV (test code=RDW) 13.6 % 11.5-14.5 RED CELL DISTRIBUTION WIDTH SD (test code=RDW-SD) 45.3 fL 37.0-54.0 PLATELET COUNT (test code=PLT) 140 x10 3/uL 150-400 MEAN PLATELET VOLUME (test code=MPV) 11.6 fL 7.0-9.0 NEUTROPHIL % (test code=NT%) 66.7 % 56.0-77.0 IMMATURE GRANULOCYTE % (test code=IG%) 0.7 % 0.0-2.0 LYMPHOCYTE % (test code=LY%) 21.9 % 14.0-32.0 MONOCYTE % (test code=MO%) 7.2 % 4.8-9.0 EOSINOPHIL % (test code=EO%) 3.3 % 0.3-3.7 BASOPHIL % (test code=BA%) 0.2 % 0.0-2.0 NUCLEATED RBC % (test code=NRBC%) 0.0 % 0-0 NEUTROPHIL # (test code=NT#) 6.51 x10 3/uL 2.0-7.6 IMMATURE GRANULOCYTE # (test code=IG#) 0.07 x10 3/uL 0.00-0.03 LYMPHOCYTE # (test code=LY#) 2.14 x10 3/uL 1.0-3.8 MONOCYTE # (test code=MO#) 0.70 x10 3/uL 0.1-0.8 EOSINOPHIL # (test code=EO#) 0.32 x10 3/uL 0.0-0.2 BASOPHIL # (test code=BA#) 0.02 x10 3/uL 0.0-0.2 NUCLEATED RBC # (test code=NRBC#) 0.00 x10 3/uL 0.0-0.1 MANUAL DIFF REQUIRED (test code=MDIFF) NO [id number] 20:45:00* Test Item Value Reference Range Comments GLUBED (test code=GLUBED) 234 MG/DL 70-110 Performed by certified contact acid plant operator helper at [facility] [id number] 17:08:00* Test Item Value Reference Range Comments GLUBED (test code=GLUBED) 284 MG/DL 70-110 Performed by certified contact acid plant operator helper at [facility] [id number] 12:50:00* Test Item Value Reference Range Comments GLUBED (test code=GLUBED) 282 MG/DL 70-110 Performed by certified contact acid plant operator helper at [facility] CBC W/AUTO [id number] 09:22:00* Test Item Value Reference Range Comments WHITE BLOOD CELL (test code=WBC) 11.31 x10 3/uL 4.5-11.0 RED BLOOD CELL (test code=RBC) 2.99 x10 6/uL 3.54-5.02 HEMOGLOBIN (test code=HGB) 8.7 g/dL 11.0-15.0 HEMATOCRIT (test code=HCT) 27.4 % 33.0-45.0 MEAN CELL VOLUME (test code=MCV) 91.6 fL 81.0-99.0 MEAN CELL HGB (test code=MCH) 29.1 pg 27.0-33.0 MEAN CELL HGB CONCETRATION (test code=MCHC) 31.8 g/dL 33.0-37.0 RED CELL DISTRIBUTION WIDTH CV (test code=RDW) 13.8 % 11.5-14.5 RED CELL DISTRIBUTION WIDTH SD (test code=RDW-SD) 45.8 fL 37.0-54.0 PLATELET COUNT (test code=PLT) 134 x10 3/uL 150-400 MEAN PLATELET VOLUME (test code=MPV) 11.7 fL 7.0-9.0 NEUTROPHIL % (test code=NT%) 64.0 % 56.0-77.0 IMMATURE GRANULOCYTE % (test code=IG%) 0.6 % 0.0-2.0 LYMPHOCYTE % (test code=LY%) 25.6 % 14.0-32.0 MONOCYTE % (test code=MO%) 6.7 % 4.8-9.0 EOSINOPHIL % (test code=EO%) 2.7 % 0.3-3.7 BASOPHIL % (test code=BA%) 0.4 % 0.0-2.0 NUCLEATED RBC % (test code=NRBC%) 0.0 % 0-0 NEUTROPHIL # (test code=NT#) 7.24 x10 3/uL 2.0-7.6 IMMATURE GRANULOCYTE # (test code=IG#) 0.07 x10 3/uL 0.00-0.03 LYMPHOCYTE # (test code=LY#) 2.89 x10 3/uL 1.0-3.8 MONOCYTE # (test code=MO#) 0.76 x10 3/uL 0.1-0.8 EOSINOPHIL # (test code=EO#) 0.31 x10 3/uL 0.0-0.2 BASOPHIL # (test code=BA#) 0.04 x10 3/uL 0.0-0.2 NUCLEATED RBC # (test code=NRBC#) 0.00 x10 3/uL 0.0-0.1 MANUAL DIFF REQUIRED (test code=MDIFF) NO [id number] 08:53:00* Test Item Value Reference Range Comments GLUBED (test code=GLUBED) 199 MG/DL 70-110 Performed by certified contact acid plant operator helper at [facility] BASIC METABOLIC [id number] 07:53:00* Test Item Value Reference Range Comments SODIUM (test code=NA) 142 mEq/L 134-147 POTASSIUM (test code=K) 4.5 mEq/L 3.4-5.0 CHLORIDE (test code=CL) 110 mEq/L 100-108 CARBON DIOXIDE (test code=CO2) 27 mEq/L 21-33 ANION GAP (test code=GAP) 10 0-20 GLUCOSE (test code=GLU) 211 mg/dL 70-110 BLOOD UREA NITROGEN (test code=BUN) 39 mg/dL 7-18 GLOMERULAR FILTRATION RATE (test code=GFR) 22.4 70-80 Units of measure=ml/min/1.73 m2 CREATININE (test code=CREAT) 2.1 mg/dL 0.6-1.3 CALCIUM (test code=CA) 8.1 mg/dL 8.0-10.5 [id number] 07:53:00* Test Item Value Reference Range Comments PHOSPHOROUS (test code=PHOS) 2.8 MG/DL 2.5-4.9 [id number] 07:53:00* Test Item Value Reference Range Comments MAGNESIUM (test code=MAG) 2.30 mg/dL 1.8-2.4 [id number] 22:14:00* Test Item Value Reference Range Comments GLUBED (test code=GLUBED) 250 MG/DL 70-110 Performed by certified contact acid plant operator helper at [facility] [id number] 20:32:00* Test Item Value Reference Range Comments GLUBED (test code=GLUBED) 259 MG/DL 70-110 Performed by certified contact acid plant operator helper at [facility] IMMUNOELECTROPHORESIS [id number] 16:08:00* Test Item Value Reference Range Comments IMMUNOGLOBULIN A (test code=SCOTTIE) 166 mg/dL 64-422 IMMUNOGLOBULIN G (test code=IMMG) 957 mg/dL 700-1600 IMMUNOGLOBULIN M (test code=IMMM) 24 mg/dL 26-217 Result confirmed on concentration.Performed At: [facility] [id number] [facility] [address] [place], [place] [id number] CN MD Ph:[phone] At: [facility] [address] [id number] Kyle L MD Ph:[phone] IMMUNOFIXATION SERUM (test code=IMMFIXS) () An apparent normal immunofixation pattern. VITAMIN [id number] 16:08:00* Test Item Value Reference Range Comments VITAMIN B12 (test code=VITB12) 736 pg/mL 193-986 FOLIC [id number] 16:08:00* Test Item Value Reference Range Comments FOLIC ACID (test code=FOL) 16.7 ng/mL 3.1-17.5 [id number] 12:21:00* Test Item Value Reference Range Comments GLUBED (test code=GLUBED) 211 MG/DL 70-110 Performed by certified contact acid plant operator helper at [facility] CBC W/AUTO [id number] 08:37:00* Test Item Value Reference Range Comments WHITE BLOOD CELL (test code=WBC) 10.48 x10 3/uL 4.5-11.0 RED BLOOD CELL (test code=RBC) 3.11 x10 6/uL 3.54-5.02 HEMOGLOBIN (test code=HGB) 8.7 g/dL 11.0-15.0 HEMATOCRIT (test code=HCT) 29.1 % 33.0-45.0 MEAN CELL VOLUME (test code=MCV) 93.6 fL 81.0-99.0 MEAN CELL HGB (test code=MCH) 28.0 pg 27.0-33.0 MEAN CELL HGB CONCETRATION (test code=MCHC) 29.9 g/dL 33.0-37.0 RED CELL DISTRIBUTION WIDTH CV (test code=RDW) 13.9 % 11.5-14.5 RED CELL DISTRIBUTION WIDTH SD (test code=RDW-SD) 47.8 fL 37.0-54.0 PLATELET COUNT (test code=PLT) 143 x10 3/uL 150-400 MEAN PLATELET VOLUME (test code=MPV) 12.3 fL 7.0-9.0 NEUTROPHIL % (test code=NT%) 73.0 % 56.0-77.0 IMMATURE GRANULOCYTE % (test code=IG%) 0.7 % 0.0-2.0 LYMPHOCYTE % (test code=LY%) 17.8 % 14.0-32.0 MONOCYTE % (test code=MO%) 6.0 % 4.8-9.0 EOSINOPHIL % (test code=EO%) 2.2 % 0.3-3.7 BASOPHIL % (test code=BA%) 0.3 % 0.0-2.0 NUCLEATED RBC % (test code=NRBC%) 0.0 % 0-0 NEUTROPHIL # (test code=NT#) 7.65 x10 3/uL 2.0-7.6 IMMATURE GRANULOCYTE # (test code=IG#) 0.07 x10 3/uL 0.00-0.03 LYMPHOCYTE # (test code=LY#) 1.87 x10 3/uL 1.0-3.8 MONOCYTE # (test code=MO#) 0.63 x10 3/uL 0.1-0.8 EOSINOPHIL # (test code=EO#) 0.23 x10 3/uL 0.0-0.2 BASOPHIL # (test code=BA#) 0.03 x10 3/uL 0.0-0.2 NUCLEATED RBC # (test code=NRBC#) 0.00 x10 3/uL 0.0-0.1 MANUAL DIFF REQUIRED (test code=MDIFF) NO [id number] 08:30:00* Test Item Value Reference Range Comments GLUBED (test code=GLUBED) 178 MG/DL 70-110 Performed by certified contact acid plant operator helper at [facility] BASIC METABOLIC [id number] 08:23:00* Test Item Value Reference Range Comments SODIUM (test code=NA) 142 mEq/L 134-147 POTASSIUM (test code=K) 4.6 mEq/L 3.4-5.0 CHLORIDE (test code=CL) 111 mEq/L 100-108 CARBON DIOXIDE (test code=CO2) 24 mEq/L 21-33 ANION GAP (test code=GAP) 12 0-20 GLUCOSE (test code=GLU) 208 mg/dL 70-110 BLOOD UREA NITROGEN (test code=BUN) 39 mg/dL 7-18 GLOMERULAR FILTRATION RATE (test code=GFR) 23.7 70-80 Units of measure=ml/min/1.73 m2 CREATININE (test code=CREAT) 2.0 mg/dL 0.6-1.3 CALCIUM (test code=CA) 7.6 mg/dL 8.0-10.5 [id number] 08:23:00* Test Item Value Reference Range Comments PHOSPHOROUS (test code=PHOS) 3.2 MG/DL 2.5-4.9 [id number] 08:23:00* Test Item Value Reference Range Comments MAGNESIUM (test code=MAG) 2.20 mg/dL 1.8-2.4 [id number] 22:56:00* Test Item Value Reference Range Comments GLUBED (test code=GLUBED) 168 MG/DL 70-110 Performed by certified contact acid plant operator helper at [facility] [id number] 17:25:00* Test Item Value Reference Range Comments GLUBED (test code=GLUBED) 283 MG/DL 70-110 Performed by certified contact acid plant operator helper at [facility] [id number] 12:19:00* Test Item Value Reference Range Comments GLUBED (test code=GLUBED) 235 MG/DL 70-110 Performed by certified contact acid plant operator helper at [facility] LACTIC [id number] 10:20:00* Test Item Value Reference Range Comments LACTIC ACID (test code=LACT) 1.8 mmol/L 0.4-1.9 CBC W/AUTO [id number] 08:45:00* Test Item Value Reference Range Comments WHITE BLOOD CELL (test code=WBC) 12.82 x10 3/uL 4.5-11.0 RED BLOOD CELL (test code=RBC) 3.04 x10 6/uL 3.54-5.02 HEMOGLOBIN (test code=HGB) 8.8 g/dL 11.0-15.0 HEMATOCRIT (test code=HCT) 27.8 % 33.0-45.0 MEAN CELL VOLUME (test code=MCV) 91.4 fL 81.0-99.0 MEAN CELL HGB (test code=MCH) 28.9 pg 27.0-33.0 MEAN CELL HGB CONCETRATION (test code=MCHC) 31.7 g/dL 33.0-37.0 RED CELL DISTRIBUTION WIDTH CV (test code=RDW) 14.0 % 11.5-14.5 RED CELL DISTRIBUTION WIDTH SD (test code=RDW-SD) 46.6 fL 37.0-54.0 PLATELET COUNT (test code=PLT) 114 x10 3/uL 150-400 MEAN PLATELET VOLUME (test code=MPV) 11.4 fL 7.0-9.0 NEUTROPHIL % (test code=NT%) 71.2 % 56.0-77.0 IMMATURE GRANULOCYTE % (test code=IG%) 0.9 % 0.0-2.0 LYMPHOCYTE % (test code=LY%) 19.1 % 14.0-32.0 MONOCYTE % (test code=MO%) 6.8 % 4.8-9.0 EOSINOPHIL % (test code=EO%) 1.8 % 0.3-3.7 BASOPHIL % (test code=BA%) 0.2 % 0.0-2.0 NUCLEATED RBC % (test code=NRBC%) 0.0 % 0-0 NEUTROPHIL # (test code=NT#) 9.12 x10 3/uL 2.0-7.6 IMMATURE GRANULOCYTE # (test code=IG#) 0.12 x10 3/uL 0.00-0.03 LYMPHOCYTE # (test code=LY#) 2.45 x10 3/uL 1.0-3.8 MONOCYTE # (test code=MO#) 0.87 x10 3/uL 0.1-0.8 EOSINOPHIL # (test code=EO#) 0.23 x10 3/uL 0.0-0.2 BASOPHIL # (test code=BA#) 0.03 x10 3/uL 0.0-0.2 NUCLEATED RBC # (test code=NRBC#) 0.00 x10 3/uL 0.0-0.1 MANUAL DIFF REQUIRED (test code=MDIFF) NO PLT [id number] 08:45:00* Test Item Value Reference Range Comments PLATELET ESTIMATE (test code=PLTEST) 188-235 THOUSAND ADEQUATE PLATELET MORPHOLOGY (test code=PLTMORPH) LARGE PLATELETS BASIC METABOLIC [id number] 08:22:00* Test Item Value Reference Range Comments SODIUM (test code=NA) 142 mEq/L 134-147 POTASSIUM (test code=K) 4.4 mEq/L 3.4-5.0 CHLORIDE (test code=CL) 112 mEq/L 100-108 CARBON DIOXIDE (test code=CO2) 24 mEq/L 21-33 ANION GAP (test code=GAP) 10 0-20 GLUCOSE (test code=GLU) 202 mg/dL 70-110 BLOOD UREA NITROGEN (test code=BUN) 41 mg/dL 7-18 GLOMERULAR FILTRATION RATE (test code=GFR) 20.2 70-80 Units of measure=ml/min/1.73 m2 CREATININE (test code=CREAT) 2.3 mg/dL 0.6-1.3 CALCIUM (test code=CA) 7.4 mg/dL 8.0-10.5 [id number] 08:22:00* Test Item Value Reference Range Comments PHOSPHOROUS (test code=PHOS) 2.7 MG/DL 2.5-4.9 [id number] 08:22:00* Test Item Value Reference Range Comments MAGNESIUM (test code=MAG) 2.20 mg/dL 1.8-2.4 [id number] 08:02:00* Test Item Value Reference Range Comments GLUBED (test code=GLUBED) 182 MG/DL 70-110 Performed by certified contact acid plant operator helper at [facility] CBC W/AUTO [id number] 07:51:00* Test Item Value Reference Range Comments WHITE BLOOD CELL (test code=WBC) 12.82 x10 3/uL 4.5-11.0 RED BLOOD CELL (test code=RBC) 3.04 x10 6/uL 3.54-5.02 HEMOGLOBIN (test code=HGB) 8.8 g/dL 11.0-15.0 HEMATOCRIT (test code=HCT) 27.8 % 33.0-45.0 MEAN CELL VOLUME (test code=MCV) 91.4 fL 81.0-99.0 MEAN CELL HGB (test code=MCH) 28.9 pg 27.0-33.0 MEAN CELL HGB CONCETRATION (test code=MCHC) 31.7 g/dL 33.0-37.0 RED CELL DISTRIBUTION WIDTH CV (test code=RDW) 14.0 % 11.5-14.5 RED CELL DISTRIBUTION WIDTH SD (test code=RDW-SD) 46.6 fL 37.0-54.0 PLATELET COUNT (test code=PLT) 114 x10 3/uL 150-400 MEAN PLATELET VOLUME (test code=MPV) 11.4 fL 7.0-9.0 NEUTROPHIL % (test code=NT%) 71.2 % 56.0-77.0 IMMATURE GRANULOCYTE % (test code=IG%) 0.9 % 0.0-2.0 LYMPHOCYTE % (test code=LY%) 19.1 % 14.0-32.0 MONOCYTE % (test code=MO%) 6.8 % 4.8-9.0 EOSINOPHIL % (test code=EO%) 1.8 % 0.3-3.7 BASOPHIL % (test code=BA%) 0.2 % 0.0-2.0 NUCLEATED RBC % (test code=NRBC%) 0.0 % 0-0 NEUTROPHIL # (test code=NT#) 9.12 x10 3/uL 2.0-7.6 IMMATURE GRANULOCYTE # (test code=IG#) 0.12 x10 3/uL 0.00-0.03 LYMPHOCYTE # (test code=LY#) 2.45 x10 3/uL 1.0-3.8 MONOCYTE # (test code=MO#) 0.87 x10 3/uL 0.1-0.8 EOSINOPHIL # (test code=EO#) 0.23 x10 3/uL 0.0-0.2 BASOPHIL # (test code=BA#) 0.03 x10 3/uL 0.0-0.2 NUCLEATED RBC # (test code=NRBC#) 0.00 x10 3/uL 0.0-0.1 MANUAL DIFF REQUIRED (test code=MDIFF) NO PLT [id number] 07:51:00* Test Item Value Reference Range Comments PLATELET ESTIMATE (test code=PLTEST) THOUSAND ADEQUATE CBC W/AUTO [id number] 07:51:00* Test Item Value Reference Range Comments WHITE BLOOD CELL (test code=WBC) 12.82 x10 3/uL 4.5-11.0 RED BLOOD CELL (test code=RBC) 3.04 x10 6/uL 3.54-5.02 HEMOGLOBIN (test code=HGB) 8.8 g/dL 11.0-15.0 HEMATOCRIT (test code=HCT) 27.8 % 33.0-45.0 MEAN CELL VOLUME (test code=MCV) 91.4 fL 81.0-99.0 MEAN CELL HGB (test code=MCH) 28.9 pg 27.0-33.0 MEAN CELL HGB CONCETRATION (test code=MCHC) 31.7 g/dL 33.0-37.0 RED CELL DISTRIBUTION WIDTH CV (test code=RDW) 14.0 % 11.5-14.5 RED CELL DISTRIBUTION WIDTH SD (test code=RDW-SD) 46.6 fL 37.0-54.0 PLATELET COUNT (test code=PLT) 114 x10 3/uL 150-400 MEAN PLATELET VOLUME (test code=MPV) 11.4 fL 7.0-9.0 NEUTROPHIL % (test code=NT%) 71.2 % 56.0-77.0 IMMATURE GRANULOCYTE % (test code=IG%) 0.9 % 0.0-2.0 LYMPHOCYTE % (test code=LY%) 19.1 % 14.0-32.0 MONOCYTE % (test code=MO%) 6.8 % 4.8-9.0 EOSINOPHIL % (test code=EO%) 1.8 % 0.3-3.7 BASOPHIL % (test code=BA%) 0.2 % 0.0-2.0 NUCLEATED RBC % (test code=NRBC%) 0.0 % 0-0 NEUTROPHIL # (test code=NT#) 9.12 x10 3/uL 2.0-7.6 IMMATURE GRANULOCYTE # (test code=IG#) 0.12 x10 3/uL 0.00-0.03 LYMPHOCYTE # (test code=LY#) 2.45 x10 3/uL 1.0-3.8 MONOCYTE # (test code=MO#) 0.87 x10 3/uL 0.1-0.8 EOSINOPHIL # (test code=EO#) 0.23 x10 3/uL 0.0-0.2 BASOPHIL # (test code=BA#) 0.03 x10 3/uL 0.0-0.2 NUCLEATED RBC # (test code=NRBC#) 0.00 x10 3/uL 0.0-0.1 MANUAL DIFF REQUIRED (test code=MDIFF) NO PLT [id number] 07:51:00* Test Item Value Reference Range Comments PLATELET ESTIMATE (test code=PLTEST) THOUSAND ADEQUATE [id number] 20:46:00* Test Item Value Reference Range Comments GLUBED (test code=GLUBED) 245 MG/DL 70-110 Performed by certified contact acid plant operator helper at [facility] - US RETRO [id number] 17:13:00 Name: LALA MURRIETA [facility] : 1935 Age/S: 84 / F [address] [place] [address] Unit #: [id number] Loc: A[place] [address] Phys: Amy Ahn MD Acct: [id number] Dis Date: Status: ADM IN PHONE #: [phone] Exam Date: 07/31/20194 FAX #: [phone] Reason: elevated creat EXAMS: CPT CODE: [id number] US RETRO LTD 98457 Patient: LALA MURRIETA. : 1935; Age: 84 years; Gender: Female. MR: [id number]. Ordering physician: Amy Ahn MD. PROCEDURE: RENAL ULTRASOUND INDICATION: Elevated creatinine. COMPARISON: None. TECHNIQUE: Sonographic evaluation of the kidneys and urinary bladder was performed. FINDINGS: KIDNEYS: The right kidney measures 10.1 cm in length. Normal contour and parenchymal echogenicity. There is no hydronephrosis, nephrolithiasis, mass lesion or perinephric collection. The left kidney measures 10.3 cm in length. Normal contour and parenchymal echogenicity. There is no hydronephrosis, nephrolithiasis, mass lesion or perinephric collection. BLADDER: Not well evaluated secondary to underdistention and Peterson catheter. Partially visualized inferior vena cava, aortic bifurcation, and abdominal aorta are unremarkable. IMPRESSION: Normal renal ultrasound. SL: IRIS at 3573 Reported and signed by: Adam Salinas M.D. PAGE 1 Signed Report (CONTINUED) Name: LALA MURRIETA [facility] : 1935 Age/S: 84 / F [address] [place] [address] Unit #: [id number] Loc: [place] [address] Phys: Amy Ahn MD Acct: [id number] Dis Date: Status: ADM IN PHONE #: [phone] Exam Date: 07/31/20194 FAX #: [phone] Reason: elevated creat EXAMS: CPT CODE: [id number] US RETRO LTD 12137 <Continued> CC: Amy Ahn MD Technologist: Gloria Kumar RDMS(AB)(OB) Trnscb Date/Time: 07/31/2019 (1713) [email or web address] Orig Print D/T: S: 07/31/2019 (4537) Probe: PAGE 2 Signed Report [id number] 16:42:00* Test Item Value Reference Range Comments GLUBED (test code=GLUBED) 245 MG/DL 70-110 Performed by certified contact acid plant operator helper at [facility] HGB [id number] 16:34:00* Test Item Value Reference Range Comments HEMOGLOBIN (test code=HGB) 8.4 g/dL 11.0-15.0 HEMATOCRIT (test code=HCT) 27.2 % 33.0-45.0 [id number] 12:51:00* Test Item Value Reference Range Comments GLUBED (test code=GLUBED) 194 MG/DL 70-110 Performed by certified contact acid plant operator helper at [facility] [id number] 05:59:00* Test Item Value Reference Range Comments GLUBED (test code=GLUBED) 186 MG/DL 70-110 Performed by certified contact acid plant operator helper at [facility] IMMUNOELECTROPHORESIS [id number] 04:38:00* Test Item Value Reference Range Comments IMMUNOGLOBULIN A (test code=SCOTTIE) IMMUNOGLOBULIN G (test code=IMMG) IMMUNOGLOBULIN M (test code=IMMM) IMMUNOFIXATION SERUM (test code=IMMFIXS) VITAMIN [id number] 04:38:00* Test Item Value Reference Range Comments VITAMIN B12 (test code=VITB12) 736 pg/mL 193-986 FOLIC [id number] 04:38:00* Test Item Value Reference Range Comments FOLIC ACID (test code=FOL) 16.7 ng/mL 3.1-17.5 BASIC METABOLIC [id number] 04:00:00* Test Item Value Reference Range Comments SODIUM (test code=NA) 144 mEq/L 134-147 POTASSIUM (test code=K) 4.7 mEq/L 3.4-5.0 CHLORIDE (test code=CL) 110 mEq/L 100-108 CARBON DIOXIDE (test code=CO2) 27 mEq/L 21-33 ANION GAP (test code=GAP) 12 0-20 GLUCOSE (test code=GLU) 212 mg/dL 70-110 BLOOD UREA NITROGEN (test code=BUN) 46 mg/dL 7-18 GLOMERULAR FILTRATION RATE (test code=GFR) 16.8 70-80 Units of measure=ml/min/1.73 m2 CREATININE (test code=CREAT) 2.7 mg/dL 0.6-1.3 CALCIUM (test code=CA) 7.5 mg/dL 8.0-10.5 [id number] 04:00:00* Test Item Value Reference Range Comments PHOSPHOROUS (test code=PHOS) 4.0 MG/DL 2.5-4.9 [id number] 04:00:00* Test Item Value Reference Range Comments MAGNESIUM (test code=MAG) 2.30 mg/dL 1.8-2.4 CBC W/AUTO [id number] 03:57:00* Test Item Value Reference Range Comments WHITE BLOOD CELL (test code=WBC) 11.61 x10 3/uL 4.5-11.0 RED BLOOD CELL (test code=RBC) 2.17 x10 6/uL 3.54-5.02 HEMOGLOBIN (test code=HGB) 6.0 g/dL 11.0-15.0 HEMATOCRIT (test code=HCT) 20.0 % 33.0-45.0 MEAN CELL VOLUME (test code=MCV) 92.2 fL 81.0-99.0 MEAN CELL HGB (test code=MCH) 27.6 pg 27.0-33.0 MEAN CELL HGB CONCETRATION (test code=MCHC) 30.0 g/dL 33.0-37.0 RED CELL DISTRIBUTION WIDTH CV (test code=RDW) 14.0 % 11.5-14.5 RED CELL DISTRIBUTION WIDTH SD (test code=RDW-SD) 47.2 fL 37.0-54.0 PLATELET COUNT (test code=PLT) 110 x10 3/uL 150-400 MEAN PLATELET VOLUME (test code=MPV) 11.3 fL 7.0-9.0 NEUTROPHIL % (test code=NT%) 73.6 % 56.0-77.0 IMMATURE GRANULOCYTE % (test code=IG%) 0.4 % 0.0-2.0 LYMPHOCYTE % (test code=LY%) 18.3 % 14.0-32.0 MONOCYTE % (test code=MO%) 7.5 % 4.8-9.0 EOSINOPHIL % (test code=EO%) 0.0 % 0.3-3.7 BASOPHIL % (test code=BA%) 0.2 % 0.0-2.0 NUCLEATED RBC % (test code=NRBC%) 0.0 % 0-0 NEUTROPHIL # (test code=NT#) 8.55 x10 3/uL 2.0-7.6 IMMATURE GRANULOCYTE # (test code=IG#) 0.05 x10 3/uL 0.00-0.03 LYMPHOCYTE # (test code=LY#) 2.12 x10 3/uL 1.0-3.8 MONOCYTE # (test code=MO#) 0.87 x10 3/uL 0.1-0.8 EOSINOPHIL # (test code=EO#) 0.00 x10 3/uL 0.0-0.2 BASOPHIL # (test code=BA#) 0.02 x10 3/uL 0.0-0.2 NUCLEATED RBC # (test code=NRBC#) 0.00 x10 3/uL 0.0-0.1 MANUAL DIFF REQUIRED (test code=MDIFF) NO [id number] 00:59:00* Test Item Value Reference Range Comments GLUBED (test code=GLUBED) 205 MG/DL 70-110 Performed by certified contact acid plant operator helper at [facility] [id number] 18:11:00* Test Item Value Reference Range Comments GLUBED (test code=GLUBED) 241 MG/DL 70-110 Performed by certified contact acid plant operator helper at [facility] [id number] 12:35:00* Test Item Value Reference Range Comments GLUBED (test code=GLUBED) 190 MG/DL 70-110 Performed by certified contact acid plant operator helper at [facility] - XR FLUOROSCOPY 0-60 [id number] 11:50:00 FAX: Jesús Daniels [phone] [place]: [address]: ADM Name: Gladys COWANCRUZLALA MOFFETT [facility] : [birth year] Age/S: 84/F [address] [place] [address] Unit #: [id number] Loc: [address] [address] Phys: Jesús Fabian MD Acct: [id number] Dis Date: Status: ADM IN PHONE #: [phone] Exam Date: 07/30/2019914 FAX #: [phone] Reason: LEFT HIP NAILING ORIF EXAMS: CPT CODE: [id number] XR FLUOROSCOPY 0-60 MIN 96219 Intraprocedural fluoroscopy was pr ovided by the Department of Radiology. Any images obtained were interprete d by the surgeon intraoperatively. FLUOROSCOPY TIME: 110 sec onds REFERENCE AIR KERMA : 8.00 mGy SL: [id number] at 1150 Reported and signed by: Ramyundo Salgado M.D. CC: Jesús milton MD Technologist: RT Cameron( R) Trnscrd Date/Time/By: 07/30/2019 (6150) : By: pardeep LUNAKWL Orig Print D/T: S: 07/30/2019 (0940) PAGE 1 Signed Report GLUBED 2019-07-30 10:09:00* Test Item Value Reference Range Comments GLUBED (test code=GLUBED) 187 MG/DL 70-110 Performed by certified contact acid plant operator helper at [facility] [id number] 07:34:00* Test Item Value Reference Range Comments GLUBED (test code=GLUBED) 177 MG/DL 70-110 Performed by certified contact acid plant operator helper at [facility] [id number] 05:31:00* Test Item Value Reference Range Comments GLUBED (test code=GLUBED) 168 MG/DL 70-110 Performed by certified contact acid plant operator helper at [facility] BASIC METABOLIC [id number] 04:16:00* Test Item Value Reference Range Comments SODIUM (test code=NA) 145 mEq/L 134-147 POTASSIUM (test code=K) 4.3 mEq/L 3.4-5.0 CHLORIDE (test code=CL) 109 mEq/L 100-108 CARBON DIOXIDE (test code=CO2) 28 mEq/L 21-33 ANION GAP (test code=GAP) 12 0-20 GLUCOSE (test code=GLU) 178 mg/dL 70-110 BLOOD UREA NITROGEN (test code=BUN) 42 mg/dL 7-18 GLOMERULAR FILTRATION RATE (test code=GFR) 20.2 70-80 Units of measure=ml/min/1.73 m2 CREATININE (test code=CREAT) 2.3 mg/dL 0.6-1.3 CALCIUM (test code=CA) 8.3 mg/dL 8.0-10.5 [id number] 04:16:00* Test Item Value Reference Range Comments PHOSPHOROUS (test code=PHOS) 3.8 MG/DL 2.5-4.9 [id number] 04:16:00* Test Item Value Reference Range Comments MAGNESIUM (test code=MAG) 2.30 mg/dL 1.8-2.4 CBC W/AUTO [id number] 04:01:00* Test Item Value Reference Range Comments WHITE BLOOD CELL (test code=WBC) 11.78 x10 3/uL 4.5-11.0 RED BLOOD CELL (test code=RBC) 2.74 x10 6/uL 3.54-5.02 HEMOGLOBIN (test code=HGB) 7.6 g/dL 11.0-15.0 HEMATOCRIT (test code=HCT) 25.3 % 33.0-45.0 MEAN CELL VOLUME (test code=MCV) 92.3 fL 81.0-99.0 MEAN CELL HGB (test code=MCH) 27.7 pg 27.0-33.0 MEAN CELL HGB CONCETRATION (test code=MCHC) 30.0 g/dL 33.0-37.0 RED CELL DISTRIBUTION WIDTH CV (test code=RDW) 14.0 % 11.5-14.5 RED CELL DISTRIBUTION WIDTH SD (test code=RDW-SD) 46.9 fL 37.0-54.0 PLATELET COUNT (test code=PLT) 143 x10 3/uL 150-400 MEAN PLATELET VOLUME (test code=MPV) 11.2 fL 7.0-9.0 NEUTROPHIL % (test code=NT%) 68.6 % 56.0-77.0 IMMATURE GRANULOCYTE % (test code=IG%) 0.4 % 0.0-2.0 LYMPHOCYTE % (test code=LY%) 22.9 % 14.0-32.0 MONOCYTE % (test code=MO%) 6.2 % 4.8-9.0 EOSINOPHIL % (test code=EO%) 1.7 % 0.3-3.7 BASOPHIL % (test code=BA%) 0.2 % 0.0-2.0 NUCLEATED RBC % (test code=NRBC%) 0.0 % 0-0 NEUTROPHIL # (test code=NT#) 8.08 x10 3/uL 2.0-7.6 IMMATURE GRANULOCYTE # (test code=IG#) 0.05 x10 3/uL 0.00-0.03 LYMPHOCYTE # (test code=LY#) 2.70 x10 3/uL 1.0-3.8 MONOCYTE # (test code=MO#) 0.73 x10 3/uL 0.1-0.8 EOSINOPHIL # (test code=EO#) 0.20 x10 3/uL 0.0-0.2 BASOPHIL # (test code=BA#) 0.02 x10 3/uL 0.0-0.2 NUCLEATED RBC # (test code=NRBC#) 0.00 x10 3/uL 0.0-0.1 MANUAL DIFF REQUIRED (test code=MDIFF) NO [id number] 23:52:00* Test Item Value Reference Range Comments GLUBED (test code=GLUBED) 161 MG/DL 70-110 Performed by certified contact acid plant operator helper at [facility] [id number] 17:38:00* Test Item Value Reference Range Comments GLUBED (test code=GLUBED) 200 MG/DL 70-110 Performed by certified contact acid plant operator helper at [facility] URINALYSIS [id number] 15:28:00* Test Item Value Reference Range Comments UA COLOR (test code=COLU) YELLOW YEL/STRAW UA APPEARANCE (test code=APPU) CLOUDY CLEAR UA GLUCOSE DIPSTICK (test code=DGLUU) 3+ NEGATIVE UA BILIRUBIN DIPSTICK (test code=BILU) NEGATIVE NEGATIVE UA KETONE DIPSTICK (test code=KETU) NEGATIVE NEGATIVE UA SPECIFIC GRAVITY (test code=SGU) 1.009 1.005-1.030 UA BLOOD DIPSTICK (test code=HENRI) 1+ NEGATIVE UA PH DIPSTICK (test code=TORI) 5.0 5.0-7.0 UA PROTEIN DIPSTICK (test code=PROU) 2+ NEGATIVE UA UROBILINIOGEN DIPSTICK (test code=URO) 0.2 mg/dL 0.2-1.0 UA NITRITE DIPSTICK (test code=DEEPAK) NEGATIVE NEGATIVE UA LEUKOCYTE ESTERASE DIPSTICK (test code=LEUU) 3+ NEGATIVE UA RBC (test code=RBCU) 4-10 RBC/HPF 0-3 UA WBC NO REFLEX (test code=WBCUCL) >50 WBC/HPF 0-3 UA BACTERIA (test code=BACU) 1+ /HPF NONE SEEN UA SQUAMOUS CELLS (test code=SQU) 0-5 /HPF NONE SEEN UA MUCUS (test code=MUCU) TRACE /LPF NONE SEEN UR PROTEIN [id number] 15:28:00* Test Item Value Reference Range Comments UR PROTEIN RANDOM (test code=PROTU) 121 mg/dL Note: Change in UNITS of MEASUREMENT. The Reference Range and Method Performance specificationshave not been established for this fluid. The test resultshould be correlated into the clinical context forinterpretation. UR CREATININE [id number] 15:28:00* Test Item Value Reference Range Comments UR CREATININE RANDOM (test code=CREATU) 56.8 mg/dL The Reference Range and Method Performance specificationshave not been established for this fluid. The test resultshould be correlated into the clinical context forinterpretation. URINALYSIS [id number] 15:20:00* Test Item Value Reference Range Comments UA COLOR (test code=COLU) YELLOW YEL/STRAW UA APPEARANCE (test code=APPU) CLOUDY CLEAR UA GLUCOSE DIPSTICK (test code=DGLUU) 3+ NEGATIVE UA BILIRUBIN DIPSTICK (test code=BILU) NEGATIVE NEGATIVE UA KETONE DIPSTICK (test code=KETU) NEGATIVE NEGATIVE UA SPECIFIC GRAVITY (test code=SGU) 1.009 1.005-1.030 UA BLOOD DIPSTICK (test code=HENRI) 1+ NEGATIVE UA PH DIPSTICK (test code=TORI) 5.0 5.0-7.0 UA PROTEIN DIPSTICK (test code=PROU) 2+ NEGATIVE UA UROBILINIOGEN DIPSTICK (test code=URO) 0.2 mg/dL 0.2-1.0 UA NITRITE DIPSTICK (test code=DEEPAK) NEGATIVE NEGATIVE UA LEUKOCYTE ESTERASE DIPSTICK (test code=LEUU) 3+ NEGATIVE UA RBC (test code=RBCU) 4-10 RBC/HPF 0-3 UA WBC NO REFLEX (test code=WBCUCL) >50 WBC/HPF 0-3 UA BACTERIA (test code=BACU) 1+ /HPF NONE SEEN UA SQUAMOUS CELLS (test code=SQU) 0-5 /HPF NONE SEEN UA MUCUS (test code=MUCU) TRACE /LPF NONE SEEN UR PROTEIN [id number] 15:20:00* Test Item Value Reference Range Comments UR PROTEIN RANDOM (test code=PROTU) mg/dL UR CREATININE [id number] 15:20:00* Test Item Value Reference Range Comments UR CREATININE RANDOM (test code=CREATU) mg/dL [id number] 12:32:00* Test Item Value Reference Range Comments GLUBED (test code=GLUBED) 258 MG/DL 70-110 Performed by certified contact acid plant operator helper at [facility] - XR CHEST 1 [id number] 09:37:00 FAX: Zaki Joel [phone] [place]: St: ADM Name: Gladys COWANCRUZLALA MOFFETT [facility] : [birth year] 35 Age/S: 84/F [address] [place] [address] Unit #: [id number] Loc: [address] [address] Phys: Zaki Alicea MD Acct: [id number] Dis Date: Status: ADM IN PHONE #: [phone] Exam Date: 07/29/2019 0917 FAX #: [phone] Reason: PRE OP EXAMS: CPT CODE: [id number] XR CHEST 1 V 42199 CHEST 1 VIEW: 07/29/2019 COMPARISON: NONE CLINICAL HISTORY: PRE OP FINDINGS: The cardiovascular silhouette is normal in size. There are mild bibasilar linear strandy densities. Upper lungs are clear. No pneumothorax identified. IMPRESSION: Mild bib asilar discoid atelectasis. at 0937 Reported and signed by: Steven Hilliard M.D. CC: Zaki Alicea MD Technologist: RT Sherry(R) Trnscrd Date/Time/By: 07/29/2019 (4528) : By: [email or web address] Orig Print D/T: S: 07/29/2019 (6159) PAGE 1 Signed Report THROMBOPLASTIN TIME PARTIAL 2019-07-29 08:10:00* Test Item Value Reference Range Comments THROMBOPLASTIN TIME PARTIAL (test code=PTT) 30.0 Seconds 25.0-39.5 Therapeutic Range: 50.4 - 88.3 Seconds Effective 02/16/2019 [id number] 05:50:00* Test Item Value Reference Range Comments GLUBED (test code=GLUBED) 300 MG/DL 70-110 Performed by certified contact acid plant operator helper at [facility] HGBA1C%2019-07-29 05:11:00* Test Item Value Reference Range Comments HGBA1C% (test code=HGBA1C%) 8.3 %A1C 4.8-6.0 COMPREHENSIVE METABOLIC [id number] 05:01:00* Test Item Value Reference Range Comments SODIUM (test code=NA) 136 mEq/L 134-147 POTASSIUM (test code=K) 5.0 mEq/L 3.4-5.0 CHLORIDE (test code=CL) 107 mEq/L 100-108 CARBON DIOXIDE (test code=CO2) 22 mEq/L 21-33 ANION GAP (test code=GAP) 12 0-20 GLUCOSE (test code=GLU) 292 mg/dL 70-110 BLOOD UREA NITROGEN (test code=BUN) 37 mg/dL 7-18 GLOMERULAR FILTRATION RATE (test code=GFR) 21.3 70-80 Units of measure=ml/min/1.73 m2 CREATININE (test code=CREAT) 2.2 mg/dL 0.6-1.3 TOTAL PROTEIN (test code=PROT) 8.1 g/dL 6.4-8.2 ALBUMIN (test code=ALB) 3.30 g/dL 3.4-5.0 CALCIUM (test code=CA) 8.4 mg/dL 8.0-10.5 BILIRUBIN TOTAL (test code=BILT) 0.4 MG/DL <1.5 SGOT/AST (test code=AST) 20 IUnit/L 15-37 SGPT/ALT (test code=ALT) 18 IUnit/L 15-65 ALKALINE PHOSPHATASE TOTAL (test code=ALKP) 103 IUnit/L 20-125 SERUM [id number] 05:00:00* Test Item Value Reference Range Comments SERUM IRON (test code=IRON) 35 mcg/dL 35-150 THYROID STIMULATING [id number] 05:00:00* Test Item Value Reference Range Comments THYROID STIMULATING HORMONE (test code=TSH) 2.02 0.42-5.47 Results in esau-International Units/mL [id number] 05:00:00* Test Item Value Reference Range Comments FERRITIN (test code=NATHALIA) 131.1 ng/mL 11.0-306.8 CBC W/AUTO [id number] 04:50:00* Test Item Value Reference Range Comments WHITE BLOOD CELL (test code=WBC) 11.69 x10 3/uL 4.5-11.0 RED BLOOD CELL (test code=RBC) 3.29 x10 6/uL 3.54-5.02 HEMOGLOBIN (test code=HGB) 9.1 g/dL 11.0-15.0 HEMATOCRIT (test code=HCT) 29.9 % 33.0-45.0 MEAN CELL VOLUME (test code=MCV) 90.9 fL 81.0-99.0 MEAN CELL HGB (test code=MCH) 27.7 pg 27.0-33.0 MEAN CELL HGB CONCETRATION (test code=MCHC) 30.4 g/dL 33.0-37.0 RED CELL DISTRIBUTION WIDTH CV (test code=RDW) 13.9 % 11.5-14.5 RED CELL DISTRIBUTION WIDTH SD (test code=RDW-SD) 46.2 fL 37.0-54.0 PLATELET COUNT (test code=PLT) 153 x10 3/uL 150-400 MEAN PLATELET VOLUME (test code=MPV) 11.7 fL 7.0-9.0 NEUTROPHIL % (test code=NT%) 84.9 % 56.0-77.0 IMMATURE GRANULOCYTE % (test code=IG%) 0.5 % 0.0-2.0 LYMPHOCYTE % (test code=LY%) 10.7 % 14.0-32.0 MONOCYTE % (test code=MO%) 3.5 % 4.8-9.0 EOSINOPHIL % (test code=EO%) 0.1 % 0.3-3.7 BASOPHIL % (test code=BA%) 0.3 % 0.0-2.0 NUCLEATED RBC % (test code=NRBC%) 0.0 % 0-0 NEUTROPHIL # (test code=NT#) 9.93 x10 3/uL 2.0-7.6 IMMATURE GRANULOCYTE # (test code=IG#) 0.06 x10 3/uL 0.00-0.03 LYMPHOCYTE # (test code=LY#) 1.25 x10 3/uL 1.0-3.8 MONOCYTE # (test code=MO#) 0.41 x10 3/uL 0.1-0.8 EOSINOPHIL # (test code=EO#) 0.01 x10 3/uL 0.0-0.2 BASOPHIL # (test code=BA#) 0.03 x10 3/uL 0.0-0.2 NUCLEATED RBC # (test code=NRBC#) 0.00 x10 3/uL 0.0-0.1 MANUAL DIFF REQUIRED (test code=MDIFF) NO PROTHROMBIN [id number] 04:44:00* Test Item Value Reference Range Comments PROTHROMBIN TIME PATIENT (test code=PTP) 11.3 SECONDS 9.3-12.9 INTERNATIONAL NORMAL RATIO (test code=INR) 1.0 0.8-1.2 TARGET INR BY INDICATION Indication INR1. Prophylaxis of venous thrombosis 2.0 - 3.0 (orthopedic surgery), Prophylaxis of venous thrombosis (other than high-risk surgery), Treatment of Deep Vein Thrombosis/Pulmonary Embolism, Prevention of systemic embolism - Tissue heart valves, Acute Myocardial Infarction (to prevent systemic embolism), Valvular heart disease, Atrial Fibrillation, Bileaflet mechanical valve in aortic position.2. Mechanical prosthetic valves (high risk), 2.5 - 3.5 Presence of Lupus Anticoagulant or Antiphospholipid Antibodies, Prevention of systemic embolism - Acute Myocardial Infarction (to prevent recurrent infarct). [id number] 00:57:00* Test Item Value Reference Range Comments GLUBED (test code=GLUBED) 220 MG/DL 70-110 Performed by certified contact acid plant operator helper at [facility] CT ABD/PEL WO IZUNGENM-[id number] 20:19:00 [place] [address] Patient Name: LALA MURRIETA MR #: [id number] : 1935 Age/Sex: 83/F Req #: [id number] Adm Physician: Ordered by: VON ARAUZ MD Report #: [id number] Location: [facility] Room/Bed: Procedure: [id number] HOPD/C T ABD/PEL WO CONTRAST-HOPD Exam Date: 04/26/19 Exam Time: 1940 REPORT STATUS: Signed EXAMINATION: CT of the abdomen and pelvis without contrast. TECHNIQUE: Sp iral CT images of the abdomen and pelvis were performed from the lung bases to the lesser trochanters. No intravenous contrast was given per physician's re quest. Coronal and sagittal reformatted images were obtained. COMPARISON: None. CLINICAL HISTORY:Constipation, lower abdominal pain for 3 days DISCUSSION: ABSENCE OF INTRAVENOUS CONTRAST DECREASES SENSITIVITY FOR DETEC TION OF FOCAL LESIONS AND VASCULAR PATHOLOGY. ABDOMEN/PELVIS: LOWER THORAX: Atherosclerotic calcification of the coronary arteries and thoracic ao rta. Calcified bilateral hilar nodes. Linear subsegmental atelectasis versus s carring in the lateral right lower lobe. 3 mm pulmonary nodule in the lateral right lower lobe (series 2, image 11). HEPATOBILIARY: No focal hepatic lesi ons. No intrahepatic biliary ductal dilation. Common bile duct is mildly dila jaqueline, measuring 8.5 mm at the antonio hepatis. GALLBLADDER: There are cholec ystectomy clips. SPLEEN: No splenomegaly. PANCREAS: No focal mass es or ductal dilatation. Fatty replacement of the pancreas. ADRENALS: No adrenal nodules. KIDNEYS/URETERS: Punctate nonobstructing calculus in the l eft superior to mid aspect (series 2, image 30 and coronal image 67). No other renal or ureteral calculi, hydronephrosis or obstruction. Mild nonspecific bilateral perinephric stranding. Mild bilateral renal cortical scarring. PELVIC ORGANS/BLADDER: Bladder is moderately distended but grossly unremarkabl e. Uterus is absent. Multiple pelvic phleboliths. PERITONEUM/RETROPERITONEU M: No free air or fluid. LYMPH NODES: No intra-abdominal,retroperitoneal, p elvic or inguinal lymphadenopathy. VESSELS: Atherosclerotic calcification of the abdominal aorta and iliac vessels. GI TRACT: Mild dilation of the rectum which measures 6.7 cm in transverse diameter, and is filled with harde barbara stool (series 2, images 79 and sagittal image 61). No surrounding inflamma tory changes. No bowel dilation or evidence of obstruction. Mild retained stoo l in the distal descending colon and sigmoid. BONES AND SOFT TISSUES: No ag gressive lytic lesions. Generalized osteopenia. Age indeterminate compression fractures of the L3 and T12 vertebral bodies. Focal subcutaneous soft tissue s tranding in the right anterior abdominal pelvic wall (series 2, image 68), whi ch may represent subcutaneous injection site IMPRESSION: 1. Mild dilatio n of the rectum, which is filled with hardened stool. This may reflect impacti on. Rest of the bowel shows no dilation or obstruction. 2. Punctate nonobst ructing calculus in the left kidney. No ureteral calculi, hydronephrosis or ob struction. 3. Mild dilation of the common bile duct, likely reflecting post cholecystectomy status. 4. Age-indeterminate compression fractures of the L3 and T12 vertebral bodies Signed by: Dr. Kaiden Carias M.D. on 04/04 8:32 PM Dictated By: KAIDEN CARIAS MD 31 Transcribed By: PRIYANKA on 04/26/192031 COPY TO: VON ARAUZ MD Breast Complete [id number] 15:11:25 Patient: LALA MURRIETA am Date/Time03/16/2019 14:34 CDTReason for ExamR92.8ReportLocation [id number]: LEFT BREAST ULTRASOUND COMPLETEHISTORY: 83-year-old referred from screening mammogram for breast cyst or lump.COMPARISON: Recent screening mammogram dated 03/08/2019TE CHNIQUE: Complete survey of the left breast with survey of the left axilla obtai barbara. Real-time images of breast performed by the radiologist as well.FINDINGS:- At the 4:00 axis, 2 cm from the nipple, simple cyst measures 8 x 6 x 8 cm, jaquan esponding to the mammographic abnormality additional cyst with single septation seen at the 9:00 retroareolar region measures 5 x 5 x 4 mm. To be followed. No i nternal vascularity.- No solid masses are seen. No axillary lymphadenopathy.PH YSICAL EXAM:On exam, no palpable abnormalities .IMPRESSION:1. Slightly complex r etroareolar 5 mm cyst, to be followed.2. Simple cyst corresponding to mammograph ic abnormality, benign.RECOMMENDATIONS: SIX-MONTH FOLLOW-UP LEFT BREAST ULTRASOU NDBI-RADS Category 3: Probably benign Final Dictated by: Jim figueroa MD, Елена FDictated DT/TM: 03/16/2019 3:07 pmSigned by: MD Ava, Елена FSigned (Electronic Signature): 03/16/2019 3:11 pmMG Mammo Digital Screening [id number] 15:24:39Patient: LALA MURRIETA Date/Time03/08/2019 10:35 CDTReason for ExamZ12.31ReportLocation R 16BILATERAL SCREENING MAMMOGRAM WITH CADHistory: 83 year-old female who presents for screening mammogram.Bilateral screening mammogram with computer assisted diagnosis was performed and compared to multiple prior studies dating as far back as 04/18/2010 with most recent prior study dated 02/23/2018 .CC AND MLO views of the both breasts were obtained and interpreted.The breasts are heterogeneously dense which may obscure small masses.Right breast: No evidence of new dominant mass, asymmetry, architectural distortion or suspicious microcalcifications is seen.Left breast: New 8 mm mass or cyst near the retroareolar plane at middle depth. No suspicious microcalcifications.Impression:8 mm left breast mass or cyst.RECOMMENDATIONS: LEFT BREAST ULTRASOUNDBI-RADS CATEGORY 0: Incomplete; Additional imaging evalu ation needed Final Dictated by: MD Ava, Елена FDictat ed DT/TM: 03/08/2019 2:30 pmSigned by: MD Ava, Елена FSigned (Delia ctronic Signature): 03/08/2019 3:24 pmMAM MAMMO SCREENING SONALI [id number] 15:47:20MAM MAMMO SCREENING SONALI W/CADZ12.31: ENCNTR SCREEN MAMMOGRAM FOR MALIGNANT NEOPLASM OF BREAST.Dictation Location: [id number] Information: Screening mammogram. Patient reports a familyhistory of breast.Technique: Bilateral digital mammogram with computer assisted diagnosis. Bilateral CC and MLO views were obtained. Supplemental cleavage viewwas obtained.Comparison: Prior mammograms dating back to 11/10/2014Findings: The breasts are heterogeneously dense, which may obscure small masses.Scattered benign type and vascular calcifications are presentbilaterally. There are no suspicious masses or microcalcifications.IMPRESSION: No mammographic evidence of malignancy. However, the breasts are dense,which may obscure small masses and screening bilateral breast ultrasoundshould be considered.ACR BI-RADS CATEGORY 1: NEGATIVERECOMMENDATION: FOLLOW UP MAMMOGRAM IN 1 YEAR.POCT-GLUCOSE METER 2017-10-02 12:55:00* Test Item Value Reference Range Comments POC-GLUCOSE METER (BEAKER) (test hkma=3408) 228 mg/dL 70-110 TESTED AT [address] [address] POCT-GLUCOSE [id number] 11:45:00* Test Item Value Reference Range Comments POC-GLUCOSE METER (BEAKER) (test ezqm=0239) 232 mg/dL 70-110 TESTED AT [address] [address] POCT-GLUCOSE [id number] 08:15:00* Test Item Value Reference Range Comments POC-GLUCOSE METER (BEAKER) (test kaur=9141) 165 mg/dL 70-110 TESTED AT [address] [address] POCT-GLUCOSE [id number] 21:31:00* Test Item Value Reference Range Comments POC-GLUCOSE METER (BEAKER) (test wtju=9592) 243 mg/dL 70-110 TESTED AT [place] [id number] [facility] [address] URINALYSIS W/ [id number] 20:40:00* Test Item Value Reference Range Comments COLOR (BEAKER) (test ebvl=473) Light Yellow CLARITY (BEAKER) (test fmpa=806) Clear SPECIFIC GRAVITY UA (BEAKER) (test hbeg=223) 1.006 1.001-1.035 PH UA (BEAKER) (test rxgt=333) 5.0 5.0-8.0 PROTEIN UA (BEAKER) (test fgqd=683) 10 mg/dL Negative GLUCOSE UA (BEAKER) (test zqkq=583) Negative Negative KETONES UA (BEAKER) (test hrkg=403) Negative Negative BILIRUBIN UA (BEAKER) (test hwyi=360) Negative Negative BLOOD UA (BEAKER) (test xnry=313) Negative Negative NITRITE UA (BEAKER) (test pmsk=341) Negative Negative LEUKOCYTE ESTERASE UA (BEAKER) (test xvhb=867) Moderate Negative UROBILINOGEN UA (BEAKER) (test noje=653) 0.2 mg/dL 0.2-1.0 RBC UA (BEAKER) (test snqx=196) 0 /HPF WBC UA (BEAKER) (test joqp=587) 10 /HPF BACTERIA (BEAKER) (test akcn=957) Many MUCUS (BEAKER) (test bwce=5750) Rare SQUAMOUS EPITHELIAL (BEAKER) (test ntwy=353) 1 /HPF SOURCE(BEAKER) (test nfvc=1693) Urine, Voided POCT-GLUCOSE [id number] 17:19:00* Test Item Value Reference Range Comments POC-GLUCOSE METER (BEAKER) (test qfxw=0404) 161 mg/dL 70-110 TESTED AT [place] [id number] [facility] [address] COMPREHENSIVE METABOLIC [id number] 17:04:00* Test Item Value Reference Range Comments TOTAL PROTEIN (BEAKER) (test dvng=131) 7.2 gm/dL 6.0-8.3 ALBUMIN (BEAKER) (test gnxs=0532) 3.5 g/dL 3.5-5.0 ALKALINE PHOSPHATASE (BEAKER) (test agwb=512) 95 U/L 40-150 BILIRUBIN TOTAL (BEAKER) (test xpky=651) < mg/dL 0.2-1.2 SODIUM (BEAKER) (test jquo=975) 140 meq/L 136-145 POTASSIUM (BEAKER) (test qykr=172) 5.1 meq/L 3.5-5.1 CHLORIDE (BEAKER) (test rvwd=362) 114 meq/L 98-107 CO2 (BEAKER) (test ejqh=792) 14 meq/L 22-29 BLOOD UREA NITROGEN (BEAKER) (test iuri=064) 55 mg/dL 7-21 CREATININE (BEAKER) (test lwyg=230) 2.63 mg/dL 0.57-1.25 GLUCOSE RANDOM (BEAKER) (test uoef=693) 142 mg/dL 70-105 CALCIUM (BEAKER) (test xifg=018) 8.4 mg/dL 8.4-10.2 AST (SGOT) (BEAKER) (test sgmx=674) 12 U/L 5-34 ALT (SGPT) (BEAKER) (test fbir=917) 8 U/L 6-55 EGFR (BEAKER) (test rkgx=4790) mL/min/1.73 sq m INSUFFICIENT CLINICAL DATA TO CALCULATE ESTIMATED GFR. [id number] 17:03:00* Test Item Value Reference Range Comments PHOSPHORUS (BEAKER) (test rczv=539) 4.0 mg/dL 2.3-4.7 [id number] 17:03:00* Test Item Value Reference Range Comments MAGNESIUM (BEAKER) (test dbpw=737) 2.1 mg/dL 1.6-2.6 CBC W/PLT COUNT & AUTO [id number] 16:32:00* Test Item Value Reference Range Comments WHITE BLOOD CELL COUNT (BEAKER) (test mvhw=694) 10.2 K/ L 3.5-10.5 RED BLOOD CELL COUNT (BEAKER) (test ioke=260) 3.29 M/ L 3.93-5.22 HEMOGLOBIN (BEAKER) (test sdhf=781) 9.1 GM/DL 11.2-15.7 HEMATOCRIT (BEAKER) (test tbny=658) 30.5 % 34.1-44.9 MEAN CORPUSCULAR VOLUME (BEAKER) (test pajo=008) 92.7 fL 79.4-94.8 MEAN CORPUSCULAR HEMOGLOBIN (BEAKER) (test ylkh=440) 27.7 pg 25.6-32.2 MEAN CORPUSCULAR HEMOGLOBIN CONC (BEAKER) (test jgra=369) 29.8 GM/DL 32.2-35.5 RED CELL DISTRIBUTION WIDTH (BEAKER) (test stvj=552) 13.3 % 11.7-14.4 PLATELET COUNT (BEAKER) (test qsce=412) 143 K/CU MM 150-450 MEAN PLATELET VOLUME (BEAKER) (test urcc=694) 12.1 fL 9.4-12.3 NUCLEATED RED BLOOD CELLS (BEAKER) (test spqn=346) 0 /100 WBC 0-0 NEUTROPHILS RELATIVE PERCENT (BEAKER) (test vwty=236) 56 % LYMPHOCYTES RELATIVE PERCENT (BEAKER) (test tiru=722) 35 % MONOCYTES RELATIVE PERCENT (BEAKER) (test oksd=305) 6 % EOSINOPHILS RELATIVE PERCENT (BEAKER) (test ovww=690) 2 % BASOPHILS RELATIVE PERCENT (BEAKER) (test ixoa=631) 0 % NEUTROPHILS ABSOLUTE COUNT (BEAKER) (test iwrm=463) 5.73 K/ L 1.56-6.13 LYMPHOCYTES ABSOLUTE COUNT (BEAKER) (test qnkz=356) 3.61 K/ L 1.18-3.74 MONOCYTES ABSOLUTE COUNT (BEAKER) (test twho=626) 0.61 K/ L 0.24-0.36 EOSINOPHILS ABSOLUTE COUNT (BEAKER) (test jrdn=928) 0.24 K/ L 0.04-0.36 BASOPHILS ABSOLUTE COUNT (BEAKER) (test ssmx=409) 0.02 K/ L 0.01-0.08 IMMATURE GRANULOCYTES-RELATIVE PERCENT (BEAKER) (test qwuf=2153) 0 % 0-1 POCT-GLUCOSE [id number] 11:47:00* Test Item Value Reference Range Comments POC-GLUCOSE METER (BEAKER) (test kkpq=3084) 216 mg/dL 70-110 TESTED AT [facility] [address] [address] POCT-GLUCOSE [id number] 09:14:00* Test Item Value Reference Range Comments POC-GLUCOSE METER (BEAKER) (test srer=[id number]) 174 mg/dL 70-110 TESTED AT [facility] [address] [address] [id number] 07:20:00* Test Item Value Reference Range Comments LIPASE (JOCELYNE) (test aqoa=398) 46 U/L 8-78 [address]& PELVIS W/O [id number] 12:15:49EXAM: CT ABDOMEN AND PELVIS WITHOUT CONTRASTINDICATION: Evaluate for hydronephrosisCOMPARISON: Radiograph dated July 27, 2014TECHNIQUE: Routine axial CT images of the abdomen and pelvis wereobtained without intravenous contrast. Coronal and sagittal reformattedimages were submitted for review.IV contrast: NoneDLP: 578.65 mGy- cmFINDINGS: The lung bases are clear. The heart size is normal. No pleural orpericardial effusion.The noncontrast appearance of the liver, spleen, p ancreas, and adrenalglands are are normal. There has been prior cholecystectomy. Nointrahepatic biliary ductal dilatation.The kidneys are normal in size. No nep hrolithiasis, hydronephrosis, orperinephric stranding is identified. The urinary bladder is normal inappearance.The stomach and small bowel are normal. There are multiple diverticulathroughout the descending and rectosigmoid colon with no p ericolonic fatstranding or bowel wall thickening. No evidence of bowel obstructi on.No lymphadenopathy is identified in the abdomen or pelvis. No free fluidor fr ee air is identified. The IVC is normal. The abdominal aorta isnormal in caliber . There are atherosclerotic calcifications of theabdominal aorta.There has been prior hysterectomy. No adnexal mass.The osseous structures are normal.IMPRESSION : 1. No acute abnormality is identified in the abdomen or pelvis.2. No hydrone phrosis or nephrolithiasis is identified.3. Mild diverticulosis of the descendi ng and rectosigmoid colon withoutevidence of acute diverticulitis.LOCATION: [facility]
--- NOTE | 2020-01-31 15:35 | Diagnostic Imaging Report ---
EXAMINATION: Head and cervical spine CT without contrast. HISTORY: Status post fall in the tub, head, neck and back trauma and pain. COMPARISON: None available TECHNIQUE: Multidetector axial images were obtained without contrast from the foramen magnum to the vertex and through the cervical spine. The images were reconstructed using brain and bone algorithms. Thin section brain images were reformatted into coronal and sagittal planes. Dose modulation, iterative reconstruction, and/or weight based adjustment of the mA/kV was utilized to reduce the radiation dose to as low as reasonably achievable. HEAD CT FINDINGS: Skull/scalp: No lytic or blastic lesions. No fractures. Parenchyma: Few scattered air and mildly confluent periventricular white matter hypodensities, most likely nonspecific chronic microvascular ischemic changes. No mass, hemorrhage or CT evidence of acute vascular insult. Brain volume: Mild generalized volume loss. Ventricles: No hydrocephalus or displacement. Arteries: No density suggestive of thrombus. Dural sinuses: No abnormal density. Extra-axial spaces: No abnormal density. Foramen magnum: No mass, Chiari malformation, or basilar invagination. Sella: No obvious mass. Paranasal/mastoid sinuses: Imaged portions unremarkable. CERVICAL SPINE CT FINDINGS: Alignment: Normal alignment and lordosis. Soft tissues: Normal. Vertebrae: Normal height and density. No acute fracture, infection or neoplasm. Degenerative changes: C1-C2: Normal C2-C3: Normal C3-C4: Normal C4-C5: Disc osteophyte complex formation asymmetric to the right, uncovertebral and facet arthrosis. Moderate right and mild left foraminal stenoses. C5-C6: Normal C6-C7: Small disc osteophyte complex formation. No canal or foraminal stenoses. C7-T1: Normal IMPRESSION: Head CT: 1. No acute postraumatic intracranial hemorrhage. 2. Mild chronic microvascular ischemic changes. 3. Mild generalized brain volume loss. Cervical spine CT: 1. No acute fractures or dislocations. 2. Chronic degenerative changes as described. Note: Acute post traumatic spinal cord, vascular or ligamentous injury cannot adequately be assessed with CT. Signed by: Dr. Janki De Paz M.D. on 01/31/2020 3:32 PM
--- NOTE | 2020-01-31 15:55 | Diagnostic Imaging Report ---
CT Chest without contrast History: Status post fall Comparison: none Technique: serial axial imaging was performed without intravenous contrast as per departmental protocol. Multiplanar images are reconstructed and reviewed when indicated. This CT examination is performed using one or more of the following dose reduction techniques: Automated exposure control, adjustment of the mA and /or kV according to patient size, and/or use of iterative reconstruction technique. Findings: No mediastinal lymphadenopathy. No definite hilar enlargement. Calcified lymph nodes within the left hilum are consistent with previous granulomatous disease. Normal size heart. No pericardial effusion. No thoracic aortic aneurysm. Normal caliber of main pulmonary trunk. Patent central airways. No pleural effusion or pneumothorax. Calcified granulomata within the left lower lobe and right upper lobe are consistent with previous granulomatous disease. The lungs are otherwise clear. No significant findings in the partially imaged abdomen. No aggressive osseous lesion. Multiple chronic, healed bilateral anterior rib fractures. There is a chronic compression deformity at T5, without fragment retropulsion. No acute fracture is seen. Impression: No acute findings in the chest by unenhanced CT scan. Signed by: Fuad Gunter MD on 01/31/2020 3:51 PM
--- NOTE | 2020-01-31 16:06 | Diagnostic Imaging Report ---
CT abdomen and pelvis without contrast History: Status post fall Comparison: none Technique: serial axial imaging was performed without intravenous contrast as per departmental protocol. Multiplanar images are reconstructed and reviewed when indicated. This CT examination is performed using one or more of the following dose reduction techniques: Automated exposure control, adjustment of the mA and /or kV according to patient size, and/or use of iterative reconstruction technique. Findings: Evaluation limited by lack of intravenous contrast. Small sliding hiatal hernia. The gallbladder and uterus are absent. Grossly unremarkable appearance of unenhanced liver, pancreas, spleen, and adrenal glands. No urinary calculus. No hydronephrosis. No apparent bladder wall thickening. Moderate bilateral renal cortical atrophy. No small or large bowel obstruction. No apparent bowel wall thickening. No findings to indicate acute appendicitis. No free fluid or adenopathy. No acute fracture. Prior open reduction/internal fixation of the left proximal femur. Severe chronic compression deformities are noted at T12 and L3. Dorsal fragment retropulsion at L3 results in moderate to severe canal stenosis. Impression: 1. No definite acute findings in the abdomen or pelvis by unenhanced CT scan. 2. Severe chronic compression deformities at T12 and L3. Dorsal fragment retropulsion at L3 results in moderate to severe canal stenosis. Signed by: Fuad Gunter MD on 01/31/2020 4:02 PM
[2020-01-31 16:21] VITALS: BP 168/85
== END 2020-01-31 16:40 | disposition home or self-care (01) ==
LOC: FSED 14:27
DX: S06.890A Other specified intracranial injury without loss of consciousness, initial encounter (principal); S16.1XXA Strain of muscle, fascia and tendon at neck level, initial encounter; R10.12 Left upper quadrant pain; S30.1XXA Contusion of abdominal wall, initial encounter; S29.8XXA Other specified injuries of thorax, initial encounter; W18.2XXA Fall in (into) shower or empty bathtub, initial encounter; Y93.E1 Activity, personal bathing and showering; Y92.002 Bathroom of unspecified non-institutional (private) residence as the place of occurrence of the external cause
CPT/HCPCS: 70450; 71250; 72125; 74176; 80048; 85025; 99283